=== PATIENT | female | born 1940 | race Hispanic/Latino ===

== ENCOUNTER → 2018-11-06 | Outpatient (CLI) | payer MEDICARE ==
[~2018-11-06] MED LIST: AMLO5TAB9 PO; DIAZ2TAB3 PO; INSU100C6 SQ; INSU3INS3 SQ; METF500T7 PO; METO-409 PO; PRAV40TA3 PO
== END | disposition home or self-care (01) ==
LOC: SHCH 10:52
PROVIDERS: ATTEND Internal Medicine Cardiovascular Disease
DX: I65.23 Occlusion and stenosis of bilateral carotid arteries (principal)
CPT/HCPCS: 93880

== ENCOUNTER → 2018-12-27 | Outpatient (CLI) | payer MEDICARE ==
[~2018-12-27] MED LIST changes: +GADODIAMIDE 10 MMOL/20 ML VIAL IV ONE; +METF500T20 PO; -METF500T7 PO
== END | disposition home or self-care (01) ==
LOC: RAH 12:48
PROVIDERS: ATTEND Internal Medicine Cardiovascular Disease
DX: M50.31 Other cervical disc degeneration, high cervical region (principal); M50.221 Other cervical disc displacement at C4-C5 level; M25.78 Osteophyte, vertebrae; M48.02 Spinal stenosis, cervical region
CPT/HCPCS: 72156; A9579

== ENCOUNTER 2019-09-13 15:43 | Emergency (ER) | payer MEDICARE ==
[2019-09-13] MEDS ORDERED: ACETAMINOPHEN 325 MG TAB ONE (18:15)
[2019-09-13] MEDS ORDERED: LIDOCAINE 5% TOPICAL PATCH TP ONE (18:15)
== END 2019-09-13 19:45 | disposition home or self-care (01) ==
LOC: EDH 15:43
DX: S39.012A Strain of muscle, fascia and tendon of lower back, initial encounter (principal); S20.219A Contusion of unspecified front wall of thorax, initial encounter; S00.83XA Contusion of other part of head, initial encounter; S00.03XA Contusion of scalp, initial encounter; G89.29 Other chronic pain; E11.9 Type 2 diabetes mellitus without complications; I10 Essential (primary) hypertension; Z88.8 Allergy status to other drugs, medicaments and biological substances; Z88.9 Allergy status to unspecified drugs, medicaments and biological substances; W18.39XA Other fall on same level, initial encounter; Y93.89 Activity, other specified; Y92.89 Other specified places as the place of occurrence of the external cause; Y99.8 Other external cause status

== ENCOUNTER 2020-02-07 21:40 | Inpatient (IN) | payer MEDICARE ==
[~2020-02-07] VITALS: Ht 157.5 cm; Wt 89.4 kg
[~2020-02-07 21:40] MED LIST changes: +ALPR-411 PO; +AMLO-257 PO; -AMLO5TAB9 PO; +ASPI-1005 PO; -DIAZ2TAB3 PO; +ESCI10TA54 PO; -GADODIAMIDE 10 MMOL/20 ML VIAL IV ONE; +HYDR-4060 PO; +INSLAN SQ; -INSU100C6 SQ; -INSU3INS3 SQ; +LIDOP TP; +LISI10TA7 PO; +METF-910 PO; -METF500T20 PO; -METO-409 PO; +PREG75 PO
[2020-02-07 22:06] LABS: BASOPHILS % (AUTO) 0.5 % (0.0-5.0); EOSINOPHILS % (AUTO) 0.5 % (0.0-8.0); HEMATOCRIT 35.5 % (36-48); LYMPHOCYTES % (AUTO) 19.1 % (21.0-51.0); MEAN CORPUSCULAR HEMOGLOBIN 32.2 pg (27.0-33.0); MEAN CORPUSCULAR HGB CONC 34.9 g/dL (32.0-36.0); MEAN CORPUSCULAR VOLUME 92.2 fL (79-99); MONOCYTES % (AUTO) 7.6 % (3.0-13.0); NEUTROPHILS % (AUTO) 71.8 % (40.0-77.0); PLATELET COUNT (AUTO) 287 K/uL (130-400); RED BLOOD CELL COUNT(AUTO) 3.85 MIL/uL (4.00-5.50); RED CELL DISTRIBUTION WIDTH 12.7 % (11.0-15.5); WHITE BLOOD COUNT (AUTO) 12.9 K/uL (4.8-10.8)
[2020-02-07 22:14] LABS: CREATININE 1.3 mg/dL (0.5-1.5); POTASSIUM 3.7 mmol/L (3.5-5.1)
[2020-02-07 22:19] LABS: ALBUMIN 4.3 g/dL (3.5-5.0); BILIRUBIN,TOTAL 0.5 mg/dL (0.2-1.0)
[2020-02-07 22:25] LABS: INR 0.99 (0.85-1.15); PARTIAL THROMBOPLASTIN TIME 24.7 SEC (26.3-35.5); PROTHROMBIN TIME 10.7 SEC (9.6-11.6)
[2020-02-07] MEDS ORDERED: FAMOTIDINE/PF 20 MG/2 ML VIAL IV ONE (22:56)
[2020-02-07] MEDS ORDERED: SUCRALFATE 1 GM TABLET ONE (22:56)
[2020-02-07] MEDS ORDERED: ONDANSETRON HCL 4 MG/2 ML VIAL ONE (22:56)
[2020-02-07] MEDS ORDERED: MAG HYDROX/AL HYDROX/SIMETH ES 30 ML SUSP UDCUP ONE (23:43)
[2020-02-07] MEDS ORDERED: LIDOCAINE HCL 2% VISCOUS 15 ML UDCUP ONE (23:43)
[2020-02-07] MEDS ORDERED: SODIUM CHLORIDE 0.9% 500ML 500 ML IV ONE (23:44)
[2020-02-08] MEDS ORDERED: MORPHINE SULFATE 4 MG/1ML SYG ONE (00:49)
[2020-02-08] MEDS ORDERED: BISACODYL 10 MG SUPP.RECT RC ONE (01:00)
[2020-02-08] MEDS: SODIUM CHLORIDE 0.9% 1000ML 1,000 ML IV SCH ×3 (01:00→19:31)
[2020-02-08] MEDS ORDERED: LACTULOSE 20 GM/30 ML UDCUP PO PRN (01:00)
[2020-02-08] MEDS ORDERED: HYDRALAZINE HCL 20 MG/ML VIAL IV PRN (01:00)
[2020-02-08] MEDS ORDERED: ACETAMINOPHEN 325 MG TAB PO PRN ×2 (01:00)
[2020-02-08] MEDS ORDERED: ONDANSETRON HCL 4 MG/2 ML VIAL IV PRN (01:00)
[2020-02-08 04:53] LABS: BASOPHILS % (AUTO) 0.4 % (0.0-5.0); EOSINOPHILS % (AUTO) 0.5 % (0.0-8.0); HEMATOCRIT 32.4 % (36-48); LYMPHOCYTES % (AUTO) 19.3 % (21.0-51.0); MEAN CORPUSCULAR HEMOGLOBIN 31.4 pg (27.0-33.0); MEAN CORPUSCULAR HGB CONC 33.3 g/dL (32.0-36.0); MEAN CORPUSCULAR VOLUME 94.2 fL (79-99); MONOCYTES % (AUTO) 6.7 % (3.0-13.0); NEUTROPHILS % (AUTO) 72.7 % (40.0-77.0); PLATELET COUNT (AUTO) 257 K/uL (130-400); RED BLOOD CELL COUNT(AUTO) 3.44 MIL/uL (4.00-5.50); RED CELL DISTRIBUTION WIDTH 12.7 % (11.0-15.5); WHITE BLOOD COUNT (AUTO) 11.4 K/uL (4.8-10.8)
[2020-02-08 05:04] LABS: CREATININE 1.1 mg/dL (0.5-1.5); POTASSIUM 4.2 mmol/L (3.5-5.1)
[2020-02-08] MEDS: INSULIN HUMULIN R 100 UNIT/ML 3ML SQ SCH ×3 (06:00→16:45)
[2020-02-08] MEDS ORDERED: SODIUM CHLORIDE 0.9% 1000ML 1,000 ML IV ONE (06:32)
[2020-02-08 09:39] VITALS: BP 150/62
[2020-02-08] MEDS: FAMOTIDINE/PF 20 MG/2 ML VIAL IV SCH ×2 (10:14→19:30)
[2020-02-08] MEDS: ENOXAPARIN SODIUM 40 MG/0.4 ML SYRINGE SQ SCH (10:15)
[2020-02-08] MEDS: MORPHINE SULFATE 2 MG/ML 1ML SYG IV PRN ×2 (10:15→19:31)
[2020-02-08 11:42] VITALS: BP 140/71
--- NOTE | 2020-02-08 14:51 | NUR ---
PT TOLERATED DIET. AFTER ONE HOUR NO NAUSEA OR ABDOMINAL DISCOMFORT PRESENT, NGT REMOVED ORDERED BY BEST HARMON OF DR. GRAY.
[2020-02-08 15:13] VITALS: BP 139/60
[2020-02-08 20:40] VITALS: BP 133/50
[2020-02-08 23:56] VITALS: BP 148/61
[2020-02-09] MEDS: MORPHINE SULFATE 2 MG/ML 1ML SYG IV PRN (00:48)
[2020-02-09] MEDS ORDERED: LIDOCAINE 5% TOPICAL PATCH TP ONE (00:53)
[2020-02-09] MEDS ORDERED: LIDOCAINE 5% TOPICAL PATCH TP SCH (01:00)
[2020-02-09] MEDS ORDERED: ALPRAZOLAM 1 MG TAB PO ONE (01:15)
[2020-02-09 03:46] VITALS: BP 133/61
[2020-02-09 05:13] LABS: BASOPHILS % (AUTO) 1.1 % (0.0-5.0); EOSINOPHILS % (AUTO) 4.2 % (0.0-8.0); HEMATOCRIT 32.3 % (36-48); LYMPHOCYTES % (AUTO) 36.1 % (21.0-51.0); MEAN CORPUSCULAR HEMOGLOBIN 31.9 pg (27.0-33.0); MEAN CORPUSCULAR HGB CONC 33.7 g/dL (32.0-36.0); MEAN CORPUSCULAR VOLUME 94.4 fL (79-99); MONOCYTES % (AUTO) 10.4 % (3.0-13.0); NEUTROPHILS % (AUTO) 47.9 % (40.0-77.0); PLATELET COUNT (AUTO) 235 K/uL (130-400); RED BLOOD CELL COUNT(AUTO) 3.42 MIL/uL (4.00-5.50); RED CELL DISTRIBUTION WIDTH 12.5 % (11.0-15.5); WHITE BLOOD COUNT (AUTO) 6.5 K/uL (4.8-10.8)
[2020-02-09] MEDS: INSULIN HUMULIN R 100 UNIT/ML 3ML SQ SCH ×3 (05:32→11:25)
[2020-02-09 05:53] LABS: ALBUMIN 3.3 g/dL (3.5-5.0); BILIRUBIN,TOTAL 0.6 mg/dL (0.2-1.0); POTASSIUM 3.8 mmol/L (3.5-5.1); TOTAL PROTEIN, SERUM 6.4 g/dL (6.0-8.3)
[2020-02-09] MEDS: SODIUM CHLORIDE 0.9% 1000ML 1,000 ML IV SCH (06:09)
[2020-02-09 07:48] VITALS: BP 180/74
[2020-02-09] MEDS: FAMOTIDINE/PF 20 MG/2 ML VIAL IV SCH (08:04)
[2020-02-09] MEDS: ENOXAPARIN SODIUM 40 MG/0.4 ML SYRINGE SQ SCH (08:05)
[2020-02-09] MEDS ORDERED: METF-444 PO (10:13)
[2020-02-09] MEDS ORDERED: ALPR-411 PO (10:13)
[2020-02-09] MEDS ORDERED: OLME40TA18 PO (10:13)
[2020-02-09] MEDS ORDERED: ATOR40TA69 PO (10:13)
[2020-02-09] MEDS ORDERED: AMLO-257 PO (10:14)
--- NOTE | 2020-02-09 10:24 | NUR ---
PER [facility], P GIVE OLMESARTAN MEDOXOMIL 40 MG PO STAT AND AMLODIPINE BESYLATE 5 MG PO STAT FOR ELEVATED BLOOD PRESSURE 180/74, HR 71.
[2020-02-09] MEDS ORDERED: AMLODIPINE BESYLATE 5 MG TAB PO SCH (10:30)
--- NOTE | 2020-02-09 10:38 | NUR ---
PT WILL TAKE HER HOME OLMESARTAN 40 MG.
[2020-02-09 11:15] VITALS: BP 166/62
[2020-02-09] MEDS ORDERED: AMLO5TAB4 PO (14:24)
--- NOTE | 2020-02-09 16:23 | NUR ---
INITIAL: Met w pt and son this afternoon to discuss dcp. Pt mentions that she lives w her son Johnny. She is independent w ambulation and ADLs. She does not own any DME or receive services. PT states that she feels safe and comfortable to return home at sd. CM to continue to follow and wait for Md recommendations. Addendum: 02/09/20 at 1627 by SARA BRADSHAW Amended: Links added.
== END 2020-02-09 15:15 | disposition home or self-care (01) | DRG 389 ==
LOC: EDH 21:40 → EDHIP 02-08 00:46 → 4AH 02-08 09:52
PROVIDERS: ADMIT Family Medicine; ATTEND Family Medicine
PROC: 0D9670Z Drainage of Stomach with Drainage Device, Via Natural or Artificial Opening (ICD-10-PCS; principal; 2020-02-08)
DX: K56.699 Other intestinal obstruction unspecified as to partial versus complete obstruction (principal); I24.9 Acute ischemic heart disease, unspecified; E11.9 Type 2 diabetes mellitus without complications; I10 Essential (primary) hypertension; I25.10 Atherosclerotic heart disease of native coronary artery without angina pectoris; K31.89 Other diseases of stomach and duodenum; F32.9 Major depressive disorder, single episode, unspecified; E78.5 Hyperlipidemia, unspecified; F41.9 Anxiety disorder, unspecified; G89.29 Other chronic pain; M54.9 Dorsalgia, unspecified; Z82.3 Family history of stroke; Z82.0 Family history of epilepsy and other diseases of the nervous system; Z82.49 Family history of ischemic heart disease and other diseases of the circulatory system; Z82.5 Family history of asthma and other chronic lower respiratory diseases; Z83.3 Family history of diabetes mellitus; Z95.1 Presence of aortocoronary bypass graft; Z88.8 Allergy status to other drugs, medicaments and biological substances
CPT/HCPCS: 36415; 71045; 74018; 74176; 80048; 80053; 82550; 82948; 83690; 83880; 84484; 85025; 85610; 85730; 93005; G0378; J1650; J2270; J2405; J3490; J7030; J7040

== ENCOUNTER 2020-06-17 06:41 | Inpatient (IN) | payer MEDICARE ==
[~2020-06-17] VITALS: Ht 157.5 cm; Wt 84.9 kg
[~2020-06-17 06:41] MED LIST changes: +AMLO5TAB4 PO; -ASPI-1005 PO; +ATOR40TA69 PO; -ESCI10TA54 PO; -HYDR-4060 PO; -INSLAN SQ; -LIDOP TP; -LISI10TA7 PO; +METF-444 PO; -METF-910 PO; +OLME40TA18 PO; -PRAV40TA3 PO; -PREG75 PO
[2020-06-17 07:07] LABS: BASOPHILS % (AUTO) 0.7 % (0.0-5.0); HEMATOCRIT 31.9 % (36-48); LYMPHOCYTES % (AUTO) 17.6 % (21.0-51.0); MEAN CORPUSCULAR HEMOGLOBIN 30.3 pg (27.0-33.0); MEAN CORPUSCULAR HGB CONC 33.2 g/dL (32.0-36.0); MEAN CORPUSCULAR VOLUME 91.1 fL (79-99); MONOCYTES % (AUTO) 5.7 % (3.0-13.0); NEUTROPHILS % (AUTO) 74.5 % (40.0-77.0); PLATELET COUNT (AUTO) 298 K/uL (130-400); RED CELL DISTRIBUTION WIDTH 12.9 % (11.0-15.5); WHITE BLOOD COUNT (AUTO) 13.1 K/uL (4.8-10.8)
[2020-06-17 07:19] LABS: INR 1.06 (0.85-1.15); PROTHROMBIN TIME 11.5 SEC (9.6-11.6)
[2020-06-17 07:20] LABS: PARTIAL THROMBOPLASTIN TIME 22.4 SEC (26.3-35.5)
[2020-06-17 07:23] LABS: ALBUMIN 3.9 g/dL (3.5-5.0); BILIRUBIN,TOTAL 1.1 mg/dL (0.2-1.0); CREATININE 1.2 mg/dL (0.5-1.5); POTASSIUM 3.8 mmol/L (3.5-5.1); TOTAL PROTEIN, SERUM 7.3 g/dL (6.0-8.3)
[2020-06-17] MEDS ORDERED: ONDANSETRON 4MG INJ ONE (07:57)
[2020-06-17] MEDS ORDERED: MORPHINE 4 MG SYG ONE ×2 (07:58→11:57)
[2020-06-17] MEDS ORDERED: 0.9%NACL 1000ML 1,000 ML IV ONE (07:58)
[2020-06-17] MEDS ORDERED: ZOSYN 3.375GM+NS 50ML 50 ML IV ONE (11:07)
[2020-06-17] MEDS ORDERED: 0.9%NACL 50ML 50 ML IV ONE (11:20)
[2020-06-17] MEDS ORDERED: MORPHINE 2 MG SYG IVP PRN (11:30)
[2020-06-17] MEDS: METRONIDAZOLE 500MG/100ML BAG 100 ML IV SCH ×2 (11:30→19:25)
[2020-06-17] MEDS: 0.9%NACL 1000ML 1,000 ML IV SCH (11:30)
[2020-06-17] MEDS ORDERED: LACTULOSE 20 GM/30 ML UDCUP PO PRN (11:30)
[2020-06-17] MEDS ORDERED: ONDANSETRON 4MG INJ IV PRN (11:30)
[2020-06-17] MEDS ORDERED: ACETAMINOPHEN 325 MG TAB PO PRN (11:30)
[2020-06-17 11:42] LABS: APPEARANCE,URINE Clear (CLEAR); BILIRUBIN,URINE Negative (NEGATIVE); COLOR,URINE Yellow (YELLOW); GLUCOSE, URINE (UA) TRACE mg/dL (NEGATIVE); KETONES,URINE Negative (NEGATIVE); LEUKOCYTE ESTERASE ,URINE Negative (NEGATIVE); NITRATE,URINE Negative (NEGATIVE); OCCULT BLOOD,URINE Negative (NEGATIVE); PH,URINE 5.5 (5.0-8.0); PROTEIN,URINE Negative (NEGATIVE)
[2020-06-17] MEDS ORDERED: METRONIDAZOLE 500MG/100ML BAG 100 ML ONE (11:57)
[2020-06-17] MEDS: INSULIN HUMULIN R 100 UNIT/ML 3ML SQ SCH (12:00)
[2020-06-17] MEDS ORDERED: ACETAMINOPHEN 325 MG TAB ONE (12:00)
[2020-06-17 12:09] LABS: RBC,URINE 0-1 /HPF (0-1); WBC,URINE 0-1 /HPF (0-1)
[2020-06-17 12:10] LABS: BACTERIA,URINE Rare /HPF (None Seen); SQUAMOUS EPITHELIAL CELL,UR Rare /HPF (0-2)
[2020-06-17] MEDS: ZOSYN 3.375GM+NS 50ML 50 ML IV SCH ×2 (13:00→20:33)
[2020-06-17 16:39] VITALS: BP 168/54
[2020-06-17] MEDS ORDERED: HYDROMORPHONE 1 MG INJ ONE (19:01)
[2020-06-17 19:39] VITALS: BP 158/50
[2020-06-17] MEDS ORDERED: ASPI-1197 PO (19:56)
[2020-06-17] MEDS: FAMOTIDINE 20MG VIAL IV SCH (20:31)
[2020-06-17] MEDS ORDERED: ALPR-411 PO (20:43)
[2020-06-17] MEDS ORDERED: ALPRAZOLAM 0.5 MG TABLET PO ONE (21:54)
[2020-06-17 23:30] VITALS: BP 153/59
[2020-06-18] MEDS: ACETAMINOPHEN 325 MG TAB PO PRN (00:18)
[2020-06-18] MEDS: 0.9%NACL 1000ML 1,000 ML IV SCH ×2 (00:50→20:28)
[2020-06-18] MEDS: METRONIDAZOLE 500MG/100ML BAG 100 ML IV SCH ×3 (03:28→20:27)
[2020-06-18 03:40] VITALS: BP 150/60
[2020-06-18] MEDS: ZOSYN 3.375GM+NS 50ML 50 ML IV SCH ×3 (04:55→20:27)
[2020-06-18 05:34] LABS: BASOPHILS % (AUTO) 0.5 % (0.0-5.0); EOSINOPHILS % (AUTO) 1.1 % (0.0-8.0); HEMATOCRIT 31.1 % (36-48); LYMPHOCYTES % (AUTO) 9.7 % (21.0-51.0); MEAN CORPUSCULAR HEMOGLOBIN 29.9 pg (27.0-33.0); MEAN CORPUSCULAR HGB CONC 32.2 g/dL (32.0-36.0); MEAN CORPUSCULAR VOLUME 93.1 fL (79-99); MONOCYTES % (AUTO) 5.7 % (3.0-13.0); NEUTROPHILS % (AUTO) 82.5 % (40.0-77.0); PLATELET COUNT (AUTO) 222 K/uL (130-400); RED BLOOD CELL COUNT(AUTO) 3.34 MIL/uL (4.00-5.50); RED CELL DISTRIBUTION WIDTH 13.3 % (11.0-15.5); WHITE BLOOD COUNT (AUTO) 14.6 K/uL (4.8-10.8)
[2020-06-18 05:54] LABS: CREATININE 1.3 mg/dL (0.5-1.5); POTASSIUM 3.7 mmol/L (3.5-5.1)
[2020-06-18] MEDS: INSULIN HUMULIN R 100 UNIT/ML 3ML SQ SCH ×5 (06:00→20:31)
[2020-06-18] MEDS ORDERED: ALPRAZOLAM 1 MG PO PRN (07:00)
[2020-06-18 07:53] VITALS: BP 141/39
[2020-06-18] MEDS: HYDROMORPHONE 1 MG INJ IVP PRN ×3 (08:15→23:37)
[2020-06-18] MEDS: ENOXAPARIN SODIUM 40 MG/0.4 ML SYRINGE SQ SCH (08:16)
[2020-06-18] MEDS ORDERED: FLUTICASONE PROPIONATE 50MCG/SPRAY 16 GM BOTTLE EN SCH ×2 (08:30→12:00)
[2020-06-18] MEDS ORDERED: NON-FORMULARY MEDICATION 1 EACH (Olmesartan Medoxomil 40 MG) PO SCH (09:00)
[2020-06-18 11:32] VITALS: BP 167/57
[2020-06-18] MEDS ORDERED: AMLODIPINE 5 MG TAB PO SCH (12:39)
[2020-06-18] MEDS ORDERED: ALPRAZOLAM 1 MG TAB PO PRN (12:39)
[2020-06-18] MEDS: ASPIRIN 81MG CHEW TAB PO SCH (13:05)
[2020-06-18 15:54] VITALS: BP 173/78
[2020-06-18 19:38] VITALS: BP 144/50
[2020-06-18] MEDS: FAMOTIDINE 20MG VIAL IV SCH (20:27)
[2020-06-18] MEDS: ALPRAZOLAM 1 MG TAB PO PRN (20:27)
[2020-06-18 23:28] VITALS: BP 159/57
[2020-06-19] MEDS: ACETAMINOPHEN 325 MG TAB PO PRN (00:43)
[2020-06-19] MEDS: METRONIDAZOLE 500MG/100ML BAG 100 ML IV SCH ×3 (03:46→19:52)
[2020-06-19] MEDS: 0.9%NACL 1000ML 1,000 ML IV SCH ×2 (03:50→17:07)
[2020-06-19 04:20] VITALS: BP 145/48
[2020-06-19] MEDS: ZOSYN 3.375GM+NS 50ML 50 ML IV SCH ×3 (05:03→20:30)
[2020-06-19 05:57] LABS: BASOPHILS % (AUTO) 0.8 % (0.0-5.0); EOSINOPHILS % (AUTO) 3.6 % (0.0-8.0); LYMPHOCYTES % (AUTO) 11.3 % (21.0-51.0); MEAN CORPUSCULAR HEMOGLOBIN 30.4 pg (27.0-33.0); MEAN CORPUSCULAR HGB CONC 33.3 g/dL (32.0-36.0); MEAN CORPUSCULAR VOLUME 91.2 fL (79-99); MONOCYTES % (AUTO) 8.1 % (3.0-13.0); NEUTROPHILS % (AUTO) 75.8 % (40.0-77.0); PLATELET COUNT (AUTO) 206 K/uL (130-400); RED BLOOD CELL COUNT(AUTO) 2.96 MIL/uL (4.00-5.50); RED CELL DISTRIBUTION WIDTH 13.2 % (11.0-15.5); WHITE BLOOD COUNT (AUTO) 7.5 K/uL (4.8-10.8)
[2020-06-19 06:11] LABS: CREATININE 1.1 mg/dL (0.5-1.5)
[2020-06-19 06:15] LABS: POTASSIUM 2.9 mmol/L (3.5-5.1)
[2020-06-19] MEDS ORDERED: HYDROMORPHONE 0.5 MG SYG (0.5MG/0.5ML) IVP ONE (06:30)
[2020-06-19] MEDS ORDERED: POTASSIUM CHLORIDE 20MEQ/100ML 100 ML IV ONE (06:37)
[2020-06-19] MEDS ORDERED: LIDOCAINE HCL-MPF 1% 2ML VIAL ONE (06:38)
[2020-06-19] MEDS: INSULIN HUMULIN R 100 UNIT/ML 3ML SQ SCH ×4 (06:39→21:00)
[2020-06-19] MEDS ORDERED: POTASSIUM CHLORIDE 20MEQ/100ML 100 ML IV PRN ×2 (06:45)
[2020-06-19] MEDS ORDERED: POTASSIUM CHLORIDE 10% ELIXIR 20 MEQ/15 ML UDCUP PO PRN (06:45)
[2020-06-19] MEDS ORDERED: LIDOCAINE HCL-MPF 1% 2ML VIAL IV PRN ×2 (06:45)
[2020-06-19] MEDS: FLUTICASONE PROPIONATE 50MCG/SPRAY 16 GM BOTTLE EN SCH (08:59)
[2020-06-19] MEDS: ASPIRIN 81MG CHEW TAB PO SCH (09:00)
[2020-06-19] MEDS: Olmesartan Medoxomil 40 MG PO SCH (09:00)
[2020-06-19] MEDS: ENOXAPARIN SODIUM 40 MG/0.4 ML SYRINGE SQ SCH (09:00)
[2020-06-19 10:29] VITALS: BP 154/50
[2020-06-19 12:00] VITALS: BP 159/46
[2020-06-19 17:07] VITALS: BP 173/54
[2020-06-19] MEDS: FAMOTIDINE 20MG VIAL IV SCH (20:29)
[2020-06-19] MEDS: HYDROMORPHONE 1 MG INJ IVP PRN (20:31)
[2020-06-19 20:32] VITALS: BP 178/59
[2020-06-19] MEDS: KCL 20 MEQ ERTAB PO PRN ×2 (22:25→23:54)
[2020-06-19] MEDS: ALPRAZOLAM 1 MG TAB PO PRN (23:54)
[2020-06-20] VITALS (25 sets, daily range): BP systolic 132–173; BP diastolic 51–68
[2020-06-20] MEDS: AMLODIPINE 5 MG TAB PO SCH ×2 (00:15→14:52)
[2020-06-20] MEDS: 0.9%NACL 1000ML 1,000 ML IV SCH ×3 (03:17→20:24)
[2020-06-20] MEDS: METRONIDAZOLE 500MG/100ML BAG 100 ML IV SCH ×3 (03:17→19:25)
[2020-06-20] MEDS: HYDROMORPHONE 1 MG INJ IVP PRN ×2 (03:47→22:05)
[2020-06-20] MEDS: ZOSYN 3.375GM+NS 50ML 50 ML IV SCH ×3 (04:54→20:40)
[2020-06-20 05:57] LABS: BASOPHILS % (AUTO) 0.8 % (0.0-5.0); EOSINOPHILS % (AUTO) 3.2 % (0.0-8.0); HEMATOCRIT 27.9 % (36-48); LYMPHOCYTES % (AUTO) 22.6 % (21.0-51.0); MEAN CORPUSCULAR HEMOGLOBIN 29.7 pg (27.0-33.0); MEAN CORPUSCULAR HGB CONC 32.6 g/dL (32.0-36.0); MEAN CORPUSCULAR VOLUME 91.2 fL (79-99); MONOCYTES % (AUTO) 9.3 % (3.0-13.0); NEUTROPHILS % (AUTO) 63.5 % (40.0-77.0); PLATELET COUNT (AUTO) 222 K/uL (130-400); RED BLOOD CELL COUNT(AUTO) 3.06 MIL/uL (4.00-5.50); RED CELL DISTRIBUTION WIDTH 13.2 % (11.0-15.5); WHITE BLOOD COUNT (AUTO) 7.1 K/uL (4.8-10.8)
[2020-06-20 06:03] LABS: CREATININE 1.1 mg/dL (0.5-1.5); POTASSIUM 3.4 mmol/L (3.5-5.1)
[2020-06-20] MEDS: INSULIN HUMULIN R 100 UNIT/ML 3ML SQ SCH ×4 (06:31→20:48)
[2020-06-20] MEDS: ALPRAZOLAM 1 MG TAB PO PRN (06:50)
[2020-06-20] MEDS ORDERED: SUCCINYLCHOLINE CHLORIDE 20 MG/ML 10 ML VIAL ONE (08:54)
[2020-06-20] MEDS ORDERED: DEXAMETHASONE SOD PHOSPHATE 10MG/ML 1ML VIAL ONE (08:54)
[2020-06-20] MEDS: FLUTICASONE PROPIONATE 50MCG/SPRAY 16 GM BOTTLE EN SCH (08:54)
[2020-06-20] MEDS ORDERED: GLYCOPYRROLATE 1 MG/5 ML SYRINGE ONE (08:54)
[2020-06-20] MEDS ORDERED: PROPOFOL 10 MG/ML 20ML VIAL IV ONE (08:54)
[2020-06-20] MEDS ORDERED: LIDOCAINE PF 100MG/5ML (2%) SYRINGE 5ML ONE (08:54)
[2020-06-20] MEDS ORDERED: ONDANSETRON 4MG INJ ONE (08:54)
[2020-06-20] MEDS ORDERED: MIDAZOLAM HCL 1 MG/ML 2ML VIAL ONE (08:55)
[2020-06-20] MEDS: ENOXAPARIN SODIUM 40 MG/0.4 ML SYRINGE SQ SCH (08:55)
[2020-06-20] MEDS ORDERED: NEOSTIGMINE 5MG/5ML SYR IV ONE (08:55)
[2020-06-20] MEDS ORDERED: ROCURONIUM 10MG/1ML SYR 10 MG/ML ML ONE (08:55)
[2020-06-20] MEDS ORDERED: FENTANYL CITRATE PF 50 MCG/1 ML 2ML VIAL ONE (08:55)
[2020-06-20] MEDS ORDERED: BUPIVACAINE/EPI/PF 0.5% 30ML VIAL IJ ONE (10:51)
[2020-06-20] MEDS ORDERED: EPHEDRINE SULFATE 50 MG/ML AMPULE ONE (11:57)
[2020-06-20] MEDS ORDERED: SUGAMMADEX SODIUM 200 MG/2 ML VIAL IV ONE (12:52)
[2020-06-20] MEDS ORDERED: MEPERIDINE-PF 25 MG/ML SYG ONE ×2 (13:05→13:32)
[2020-06-20] MEDS: Olmesartan Medoxomil 40 MG PO SCH (14:50)
[2020-06-20] MEDS: ASPIRIN 81MG CHEW TAB PO SCH (14:52)
[2020-06-20] MEDS: FAMOTIDINE 20MG VIAL IV SCH (20:40)
[2020-06-21] VITALS (7 sets, daily range): BP systolic 124–163; BP diastolic 39–75
[2020-06-21] MEDS: ALPRAZOLAM 1 MG TAB PO PRN ×2 (00:04→22:49)
[2020-06-21] MEDS: METRONIDAZOLE 500MG/100ML BAG 100 ML IV SCH ×3 (03:24→20:28)
[2020-06-21] MEDS: ZOSYN 3.375GM+NS 50ML 50 ML IV SCH ×3 (03:40→20:31)
[2020-06-21 06:03] LABS: HEMATOCRIT 26.2 % (36-48); MEAN CORPUSCULAR HEMOGLOBIN 30.3 pg (27.0-33.0); MEAN CORPUSCULAR VOLUME 89.1 fL (79-99); RED BLOOD CELL COUNT(AUTO) 2.94 MIL/uL (4.00-5.50); RED CELL DISTRIBUTION WIDTH 13.1 % (11.0-15.5); WHITE BLOOD COUNT (AUTO) 13.6 K/uL (4.8-10.8)
[2020-06-21 06:17] LABS: ALBUMIN 2.9 g/dL (3.5-5.0); BILIRUBIN,TOTAL 1.3 mg/dL (0.2-1.0); CREATININE 1.1 mg/dL (0.5-1.5); POTASSIUM 3.5 mmol/L (3.5-5.1); TOTAL PROTEIN, SERUM 6.2 g/dL (6.0-8.3)
[2020-06-21] MEDS: INSULIN HUMULIN R 100 UNIT/ML 3ML SQ SCH ×4 (06:35→21:03)
[2020-06-21] MEDS: KCL 20 MEQ ERTAB PO PRN ×2 (07:30→10:21)
[2020-06-21] MEDS: HYDROMORPHONE 1 MG INJ IVP PRN ×4 (07:36→20:53)
[2020-06-21] MEDS: 0.9%NACL 1000ML 1,000 ML IV SCH ×2 (08:50→20:33)
[2020-06-21] MEDS: ENOXAPARIN SODIUM 40 MG/0.4 ML SYRINGE SQ SCH (08:58)
[2020-06-21] MEDS: AMLODIPINE 5 MG TAB PO SCH (08:58)
[2020-06-21] MEDS: ASPIRIN 81MG CHEW TAB PO SCH (08:58)
[2020-06-21] MEDS: FLUTICASONE PROPIONATE 50MCG/SPRAY 16 GM BOTTLE EN SCH (09:15)
[2020-06-21] MEDS: Olmesartan Medoxomil 40 MG PO SCH (09:16)
[2020-06-21] MEDS ORDERED: ACETAMINOPHEN WITH CODEINE 1 TAB TAB PO PRN (16:30)
[2020-06-21] MEDS: FAMOTIDINE 20MG VIAL IV SCH (20:28)
[2020-06-22] MEDS: HYDROMORPHONE 1 MG INJ IVP PRN ×4 (01:08→14:49)
[2020-06-22] MEDS: METRONIDAZOLE 500MG/100ML BAG 100 ML IV SCH ×2 (03:14→11:30)
[2020-06-22 04:01] VITALS: BP 162/56
[2020-06-22] MEDS: ZOSYN 3.375GM+NS 50ML 50 ML IV SCH ×2 (04:41→13:11)
[2020-06-22] MEDS: INSULIN HUMULIN R 100 UNIT/ML 3ML SQ SCH ×2 (05:36→11:30)
[2020-06-22 08:21] VITALS: BP 156/47
[2020-06-22] MEDS: AMLODIPINE 5 MG TAB PO SCH (08:51)
[2020-06-22] MEDS: ASPIRIN 81MG CHEW TAB PO SCH (08:51)
[2020-06-22] MEDS: ENOXAPARIN SODIUM 40 MG/0.4 ML SYRINGE SQ SCH (08:52)
[2020-06-22] MEDS: FLUTICASONE PROPIONATE 50MCG/SPRAY 16 GM BOTTLE EN SCH (08:52)
[2020-06-22 11:00] VITALS: BP 109/49
[2020-06-22] MEDS: 0.9%NACL 1000ML 1,000 ML IV SCH (13:11)
[2020-06-22] MEDS ORDERED: ACET-2247 PO (15:41)
[2020-06-22 16:58] VITALS: BP 163/56
== END 2020-06-22 17:55 | disposition home or self-care (01) | DRG 419 ==
LOC: EDH 06:41 → EDHIP 11:26 → 3DH 16:00
PROVIDERS: ADMIT Internal Medicine; ATTEND Internal Medicine
PROC: 0FT44ZZ Resection of Gallbladder, Percutaneous Endoscopic Approach (ICD-10-PCS; principal; 2020-06-20 10:00)
DX: K80.00 Calculus of gallbladder with acute cholecystitis without obstruction (principal); I25.10 Atherosclerotic heart disease of native coronary artery without angina pectoris; K76.0 Fatty (change of) liver, not elsewhere classified; I10 Essential (primary) hypertension; E11.9 Type 2 diabetes mellitus without complications; E78.5 Hyperlipidemia, unspecified; F41.9 Anxiety disorder, unspecified; G89.29 Other chronic pain; M54.9 Dorsalgia, unspecified; K82.8 Other specified diseases of gallbladder; E66.9 Obesity, unspecified; Z68.34 Body mass index [BMI] 34.0-34.9, adult; Z88.8 Allergy status to other drugs, medicaments and biological substances; Z95.1 Presence of aortocoronary bypass graft; Z82.3 Family history of stroke; Z82.0 Family history of epilepsy and other diseases of the nervous system; Z83.3 Family history of diabetes mellitus; Z82.5 Family history of asthma and other chronic lower respiratory diseases; Z81.8 Family history of other mental and behavioral disorders; Z82.49 Family history of ischemic heart disease and other diseases of the circulatory system
CPT/HCPCS: 36415; 71045; 74181; 76705; 78226; 80048; 80053; 81001; 82550; 82948; 84484; 85025; 85027; 85610; 85730; 88304; 93005; A9537; G0378; J0330; J1100; J1170; J1650; J1815; J2001; J2175; J2250; J2270; J2405; J2543; J2704; J2710; J3010; J3480; J3490; J7030

== ENCOUNTER 2020-07-01 17:54 | Inpatient (IN) | payer MEDICARE ==
[~2020-07-01] VITALS: Ht 157.5 cm; Wt 86.5 kg
[~2020-07-01 17:54] MED LIST changes: +ACET-2247 PO; -AMLO-257 PO; +ASPI-1197 PO; -ATOR40TA69 PO
[2020-07-01 18:16] LABS: APPEARANCE,URINE Clear (CLEAR); BILIRUBIN,URINE Negative (NEGATIVE); COLOR,URINE Yellow (YELLOW); GLUCOSE, URINE (UA) Negative (NEGATIVE); KETONES,URINE Negative (NEGATIVE); LEUKOCYTE ESTERASE ,URINE Trace (NEGATIVE); NITRATE,URINE Negative (NEGATIVE); OCCULT BLOOD,URINE Negative (NEGATIVE); PROTEIN,URINE Negative (NEGATIVE)
[2020-07-01] MEDS ORDERED: MORPHINE 4 MG SYG ONE (18:22)
[2020-07-01] MEDS ORDERED: ONDANSETRON 4MG INJ ONE (18:22)
[2020-07-01 18:23] LABS: BACTERIA,URINE Rare /HPF (None Seen); RBC,URINE 0-1 /HPF (0-1); SQUAMOUS EPITHELIAL CELL,UR Few /HPF (0-2)
[2020-07-01 18:28] LABS: BASOPHILS % (AUTO) 0.7 % (0.0-5.0); EOSINOPHILS % (AUTO) 1.1 % (0.0-8.0); HEMATOCRIT 33.3 % (36-48); LYMPHOCYTES % (AUTO) 19.6 % (21.0-51.0); MEAN CORPUSCULAR HEMOGLOBIN 29.5 pg (27.0-33.0); MEAN CORPUSCULAR HGB CONC 32.4 g/dL (32.0-36.0); MONOCYTES % (AUTO) 6.6 % (3.0-13.0); NEUTROPHILS % (AUTO) 71.6 % (40.0-77.0); PLATELET COUNT (AUTO) 537 K/uL (130-400); RED BLOOD CELL COUNT(AUTO) 3.66 MIL/uL (4.00-5.50); RED CELL DISTRIBUTION WIDTH 13.4 % (11.0-15.5); WHITE BLOOD COUNT (AUTO) 9.9 K/uL (4.8-10.8)
[2020-07-01 18:40] LABS: CREATININE 1.4 mg/dL (0.5-1.5); POTASSIUM 3.8 mmol/L (3.5-5.1)
[2020-07-01 18:44] LABS: INR 1.05 (0.85-1.15); PROTHROMBIN TIME 11.4 SEC (9.6-11.6)
[2020-07-01 18:45] LABS: PARTIAL THROMBOPLASTIN TIME 24.8 SEC (26.3-35.5)
[2020-07-01 18:50] LABS: ALBUMIN 3.8 g/dL (3.5-5.0); BILIRUBIN,TOTAL 0.9 mg/dL (0.2-1.0); CRP QUANTITATIVE 14.3 mg/L (0.00-9.0); TOTAL PROTEIN, SERUM 7.8 g/dL (6.0-8.3)
[2020-07-01 18:57] LABS: B-TYPE NATRIURETIC PEPTIDE 103 pg/mL (0-100)
[2020-07-01] MEDS ORDERED: IOHEXOL-350 75 ML VIAL IV ONE (19:08)
[2020-07-01] MEDS ORDERED: HYDROMORPHONE 1 MG INJ ONE (19:22)
[2020-07-01] MEDS ORDERED: 0.9%NACL 50ML 50 ML IV ONE (22:35)
[2020-07-02] MEDS ORDERED: MORPHINE 4 MG SYG ONE ×2 (01:15→08:04)
[2020-07-02] MEDS ORDERED: MORPHINE 2 MG SYG IVP PRN ×2 (02:00)
[2020-07-02] MEDS ORDERED: MORPHINE 2 MG SYG IV PRN (03:00)
[2020-07-02] MEDS ORDERED: MORPHINE 4 MG SYG IV PRN (03:00)
[2020-07-02] MEDS ORDERED: 0.9%NACL 1000ML 1,000 ML IV ONE (04:09)
[2020-07-02 05:08] LABS: MAGNESIUM 1.5 mg/dL (1.80-2.40); PHOSPHORUS 3.8 mg/dL (2.5-4.9); THYROID STIMULATING HORMONE 1.41 uIU/mL (0.36-3.74)
[2020-07-02] MEDS: INSULIN HUMULIN R 100 UNIT/ML 3ML SQ SCH ×3 (06:00→18:00)
[2020-07-02] MEDS ORDERED: METOPROLOL TARTRATE 1 MG/ML 5ML VIAL IV SCH (06:00)
[2020-07-02 08:57] VITALS: BP 169/66
[2020-07-02] MEDS ORDERED: METOCLOPRAMIDE 10 MG/2 ML VIAL IVP SCH (09:00)
[2020-07-02] MEDS: FAMOTIDINE 20MG VIAL IV SCH ×2 (09:00→20:34)
[2020-07-02] MEDS: HYDROMORPHONE 2 MG VIAL (2MG/ML) IVP PRN ×4 (09:21→21:30)
[2020-07-02] MEDS: ONDANSETRON 4MG INJ IVP PRN ×2 (09:30→15:53)
[2020-07-02 11:06] VITALS: BP 138/55
[2020-07-02] MEDS: 0.9%NACL 1000ML 1,000 ML IV SCH ×3 (11:18→23:00)
[2020-07-02] MEDS ORDERED: ALPR1TAB7 PO (15:20)
[2020-07-02 15:21] VITALS: BP 165/56
[2020-07-02] MEDS ORDERED: ALPRAZOLAM 1 MG TAB PO PRN (17:45)
[2020-07-02] MEDS: LIDOCAINE 5% TOPICAL PATCH TP SCH (17:45)
[2020-07-02] MEDS ORDERED: LORAZEPAM 2 MG/ML 1 ML VIAL ONE (18:03)
[2020-07-02] MEDS ORDERED: LIDOCAINE 5% TOPICAL PATCH TP ONE (18:04)
[2020-07-02 20:00] VITALS: BP 156/53
[2020-07-02] MEDS: FLUTICASONE PROPIONATE 50MCG/SPRAY 16 GM BOTTLE EN SCH (21:00)
[2020-07-02] MEDS ORDERED: PHENOL 177 ML BOTTLE PO PRN (21:00)
[2020-07-02 23:49] VITALS: BP 164/58
[2020-07-03] VITALS (27 sets, daily range): BP systolic 142–168; BP diastolic 52–74
[2020-07-03] MEDS: HYDROMORPHONE 2 MG VIAL (2MG/ML) IVP PRN ×3 (03:20→20:11)
[2020-07-03] MEDS: INSULIN HUMULIN R 100 UNIT/ML 3ML SQ SCH ×4 (06:00→18:00)
[2020-07-03 07:15] LABS: BASOPHILS % (AUTO) 0.8 % (0.0-5.0); EOSINOPHILS % (AUTO) 2.7 % (0.0-8.0); HEMATOCRIT 31.3 % (36-48); LYMPHOCYTES % (AUTO) 29.3 % (21.0-51.0); MEAN CORPUSCULAR HGB CONC 32.6 g/dL (32.0-36.0); MEAN CORPUSCULAR VOLUME 92.1 fL (79-99); MONOCYTES % (AUTO) 6.7 % (3.0-13.0); PLATELET COUNT (AUTO) 439 K/uL (130-400); RED CELL DISTRIBUTION WIDTH 13.4 % (11.0-15.5); WHITE BLOOD COUNT (AUTO) 10.2 K/uL (4.8-10.8)
[2020-07-03] MEDS: LORAZEPAM 2 MG/ML 1 ML VIAL IVP PRN (07:20)
[2020-07-03] MEDS: 0.9%NACL 1000ML 1,000 ML IV SCH ×2 (07:20→15:33)
[2020-07-03 07:29] LABS: ALBUMIN 3.4 g/dL (3.5-5.0); BILIRUBIN,TOTAL 0.7 mg/dL (0.2-1.0); POTASSIUM 3.6 mmol/L (3.5-5.1); TOTAL PROTEIN, SERUM 7.1 g/dL (6.0-8.3)
[2020-07-03] MEDS: FLUTICASONE PROPIONATE 50MCG/SPRAY 16 GM BOTTLE EN SCH ×2 (10:21→21:13)
[2020-07-03] MEDS: LIDOCAINE 5% TOPICAL PATCH TP SCH (10:21)
[2020-07-03] MEDS: FAMOTIDINE 20MG VIAL IV SCH ×2 (10:21→21:13)
[2020-07-03] MEDS ORDERED: LIDOCAINE PF 100MG/5ML (2%) SYRINGE 5ML ONE (14:05)
[2020-07-03] MEDS ORDERED: SUCCINYLCHOLINE CHLORIDE 20 MG/ML 10 ML VIAL ONE (14:05)
[2020-07-03] MEDS ORDERED: PROPOFOL 10 MG/ML 20ML VIAL IV ONE (14:06)
[2020-07-03] MEDS ORDERED: MIDAZOLAM HCL 1 MG/ML 2ML VIAL ONE (14:07)
[2020-07-03] MEDS ORDERED: ROCURONIUM 10MG/1ML SYR 10 MG/ML ML ONE (14:07)
[2020-07-03] MEDS ORDERED: ONDANSETRON 4MG INJ ONE ×2 (14:08→15:45)
[2020-07-03] MEDS ORDERED: CEFAZOLIN SODIUM 1 GM VIAL ONE (14:08)
[2020-07-03] MEDS ORDERED: FENTANYL CITRATE PF 50 MCG/1 ML 2ML VIAL ONE ×2 (14:31→14:52)
[2020-07-03] MEDS ORDERED: BUPIVACAINE/PF 0.5% 30ML VIAL ONE (15:02)
[2020-07-03] MEDS ORDERED: DEXAMETHASONE SOD PHOSPHATE 10MG/ML 1ML VIAL ONE (15:06)
[2020-07-03] MEDS ORDERED: GLYCOPYRROLATE 1 MG/5 ML SYRINGE ONE (15:11)
[2020-07-03] MEDS ORDERED: NEOSTIGMINE 5MG/5ML SYR IV ONE (15:11)
[2020-07-03] MEDS ORDERED: MEPERIDINE-PF 25 MG/ML SYG ONE ×2 (15:52→16:01)
[2020-07-03] MEDS ORDERED: KETOROLAC 15MG/ML VIAL (15MG/ML) ONE (16:09)
[2020-07-03] MEDS ORDERED: AMLODIPINE 5 MG TAB PO SCH (17:55)
[2020-07-03] MEDS: CEFAZOLIN SODIUM 1 GM VIAL IVP SCH (22:16)
[2020-07-03] MEDS ORDERED: LABETALOL 20MG VIAL IV ONE (23:07)
[2020-07-04] VITALS: BP 152/54
[2020-07-04] MEDS: HYDROMORPHONE 2 MG VIAL (2MG/ML) IVP PRN ×6 (00:21→20:50)
[2020-07-04 04:00] VITALS: BP 169/51
[2020-07-04] MEDS: LACTATED RINGERS 1000ML 1,000 ML IV SCH ×3 (05:33→20:54)
[2020-07-04] MEDS: CEFAZOLIN SODIUM 1 GM VIAL IVP SCH (05:33)
[2020-07-04] MEDS: INSULIN HUMULIN R 100 UNIT/ML 3ML SQ SCH ×4 (06:00→18:00)
[2020-07-04] MEDS ORDERED: ACETAMINOPHEN 325 MG TAB ONE (06:41)
[2020-07-04 07:09] LABS: BASOPHILS % (AUTO) 0.5 % (0.0-5.0); EOSINOPHILS % (AUTO) 0.1 % (0.0-8.0); HEMATOCRIT 26.7 % (36-48); MEAN CORPUSCULAR HEMOGLOBIN 30.6 pg (27.0-33.0); MEAN CORPUSCULAR HGB CONC 33.3 g/dL (32.0-36.0); MEAN CORPUSCULAR VOLUME 91.8 fL (79-99); MONOCYTES % (AUTO) 5.3 % (3.0-13.0); NEUTROPHILS % (AUTO) 83.4 % (40.0-77.0); PLATELET COUNT (AUTO) 390 K/uL (130-400); RED BLOOD CELL COUNT(AUTO) 2.91 MIL/uL (4.00-5.50); RED CELL DISTRIBUTION WIDTH 13.3 % (11.0-15.5); WHITE BLOOD COUNT (AUTO) 12.2 K/uL (4.8-10.8)
[2020-07-04 07:27] LABS: POTASSIUM 3.9 mmol/L (3.5-5.1)
[2020-07-04] MEDS: ASPIRIN 81MG CHEW TAB PO SCH (09:00)
[2020-07-04] MEDS: FAMOTIDINE 20MG VIAL IV SCH ×2 (09:29→20:47)
[2020-07-04] MEDS: FLUTICASONE PROPIONATE 50MCG/SPRAY 16 GM BOTTLE EN SCH ×2 (09:30→20:50)
[2020-07-04] MEDS: LIDOCAINE 5% TOPICAL PATCH TP SCH (09:30)
[2020-07-04] MEDS: LORAZEPAM 2 MG/ML 1 ML VIAL IVP PRN ×3 (09:31→22:32)
[2020-07-04 09:51] VITALS: BP 157/88
[2020-07-04 12:00] VITALS: BP 180/67
[2020-07-04] MEDS: LABETALOL 20MG VIAL IV PRN (12:52)
[2020-07-04] MEDS ORDERED: AMLODIPINE 5 MG TAB PO ONE (14:00)
[2020-07-04 16:38] VITALS: BP 183/56
[2020-07-04 20:16] VITALS: BP 163/76
[2020-07-04] MEDS: ACETAMINOPHEN 325 MG TAB PO PRN (22:36)
[2020-07-05] VITALS (7 sets, daily range): BP systolic 128–179; BP diastolic 61–79
[2020-07-05] MEDS: HYDROMORPHONE 2 MG VIAL (2MG/ML) IVP PRN ×5 (01:11→21:52)
[2020-07-05] MEDS: LACTATED RINGERS 1000ML 1,000 ML IV SCH ×2 (01:45→11:45)
[2020-07-05 05:38] LABS: BASOPHILS % (AUTO) 0.5 % (0.0-5.0); EOSINOPHILS % (AUTO) 6.6 % (0.0-8.0); HEMATOCRIT 29.3 % (36-48); LYMPHOCYTES % (AUTO) 20.5 % (21.0-51.0); MEAN CORPUSCULAR HEMOGLOBIN 29.1 pg (27.0-33.0); MEAN CORPUSCULAR HGB CONC 31.7 g/dL (32.0-36.0); MEAN CORPUSCULAR VOLUME 91.6 fL (79-99); MONOCYTES % (AUTO) 8.2 % (3.0-13.0); NEUTROPHILS % (AUTO) 63.5 % (40.0-77.0); PLATELET COUNT (AUTO) 409 K/uL (130-400); RED CELL DISTRIBUTION WIDTH 13.2 % (11.0-15.5); WHITE BLOOD COUNT (AUTO) 10.2 K/uL (4.8-10.8)
[2020-07-05] MEDS: INSULIN HUMULIN R 100 UNIT/ML 3ML SQ SCH ×5 (05:41→23:40)
[2020-07-05 05:58] LABS: ALBUMIN 2.8 g/dL (3.5-5.0); BILIRUBIN,TOTAL 0.6 mg/dL (0.2-1.0); CREATININE 0.8 mg/dL (0.5-1.5); POTASSIUM 3.2 mmol/L (3.5-5.1); TOTAL PROTEIN, SERUM 6.3 g/dL (6.0-8.3)
[2020-07-05] MEDS: ACETAMINOPHEN 325 MG TAB PO PRN ×3 (06:43→20:11)
[2020-07-05] MEDS: LABETALOL 20MG VIAL IV PRN (06:47)
[2020-07-05] MEDS: FAMOTIDINE 20MG VIAL IV SCH ×2 (10:01→20:21)
[2020-07-05] MEDS: LIDOCAINE 5% TOPICAL PATCH TP SCH (10:01)
[2020-07-05] MEDS: ASPIRIN 81MG CHEW TAB PO SCH (10:01)
[2020-07-05] MEDS: LORAZEPAM 2 MG/ML 1 ML VIAL IVP PRN ×2 (10:02→17:29)
[2020-07-05] MEDS: ONDANSETRON 4MG INJ IVP PRN ×2 (10:14→16:25)
[2020-07-05] MEDS: FLUTICASONE PROPIONATE 50MCG/SPRAY 16 GM BOTTLE EN SCH ×2 (10:37→20:21)
[2020-07-05] MEDS: AMLODIPINE 5 MG TAB PO SCH (12:22)
[2020-07-05] MEDS ORDERED: POTASSIUM CHLORIDE 10% ELIXIR 20 MEQ/15 ML UDCUP PO PRN (13:30)
[2020-07-05] MEDS ORDERED: LIDOCAINE HCL-MPF 1% 2ML VIAL IV PRN (13:30)
[2020-07-05] MEDS ORDERED: POTASSIUM CHLORIDE 10MEQ/100ML 100 ML IV PRN (13:30)
[2020-07-05] MEDS: KCL 20 MEQ ERTAB PO PRN ×3 (13:57→17:59)
[2020-07-05] MEDS: DOCUSATE SODIUM 100 MG CAP PO SCH (20:21)
[2020-07-05] MEDS: ACETAMINOPHEN WITH CODEINE 1 TAB TAB PO PRN (20:22)
[2020-07-05] MEDS: ALPRAZOLAM 1 MG TAB PO PRN (22:36)
[2020-07-06] VITALS: BP 143/59
[2020-07-06] MEDS ORDERED: HYDROMORPHONE 0.5 MG SYG (0.5MG/0.5ML) ONE (02:45)
[2020-07-06 03:50] VITALS: BP 162/66
[2020-07-06] MEDS: ACETAMINOPHEN WITH CODEINE 1 TAB TAB PO PRN ×2 (05:36→09:30)
[2020-07-06] MEDS: INSULIN HUMULIN R 100 UNIT/ML 3ML SQ SCH (05:37)
[2020-07-06 05:49] LABS: BASOPHILS % (AUTO) 0.5 % (0.0-5.0); HEMATOCRIT 25.6 % (36-48); LYMPHOCYTES % (AUTO) 22.6 % (21.0-51.0); MEAN CORPUSCULAR HEMOGLOBIN 30.2 pg (27.0-33.0); MEAN CORPUSCULAR HGB CONC 33.6 g/dL (32.0-36.0); MEAN CORPUSCULAR VOLUME 89.8 fL (79-99); MONOCYTES % (AUTO) 9.5 % (3.0-13.0); NEUTROPHILS % (AUTO) 59.7 % (40.0-77.0); PLATELET COUNT (AUTO) 365 K/uL (130-400); RED BLOOD CELL COUNT(AUTO) 2.85 MIL/uL (4.00-5.50); RED CELL DISTRIBUTION WIDTH 13.2 % (11.0-15.5); WHITE BLOOD COUNT (AUTO) 8.1 K/uL (4.8-10.8)
[2020-07-06 05:57] LABS: CREATININE 0.8 mg/dL (0.5-1.5); POTASSIUM 3.6 mmol/L (3.5-5.1)
[2020-07-06] MEDS: KCL 20 MEQ ERTAB PO PRN ×2 (06:11→09:31)
[2020-07-06 07:25] VITALS: BP 148/66
[2020-07-06] MEDS ORDERED: ACET1TAB25 PO (08:01)
[2020-07-06] MEDS ORDERED: DOCU-116 PO (08:01)
[2020-07-06] MEDS: ALPRAZOLAM 1 MG TAB PO PRN (08:11)
[2020-07-06] MEDS: AMLODIPINE 5 MG TAB PO SCH (09:05)
[2020-07-06] MEDS: DOCUSATE SODIUM 100 MG CAP PO SCH (09:05)
[2020-07-06] MEDS: ASPIRIN 81MG CHEW TAB PO SCH (09:05)
[2020-07-06] MEDS: FAMOTIDINE 20MG VIAL IV SCH (09:05)
[2020-07-06] MEDS: LIDOCAINE 5% TOPICAL PATCH TP SCH (09:05)
[2020-07-06] MEDS: FLUTICASONE PROPIONATE 50MCG/SPRAY 16 GM BOTTLE EN SCH (09:07)
[2020-07-06] MEDS: ONDANSETRON 4MG INJ IVP PRN (09:49)
== END 2020-07-06 13:25 | disposition home or self-care (01) | DRG 355 ==
LOC: EDH 17:54 → EDHIP 07-02 01:20 → 3BH 07-02 08:47
PROVIDERS: ADMIT Internal Medicine; ATTEND Internal Medicine
PROC: 0D9670Z Drainage of Stomach with Drainage Device, Via Natural or Artificial Opening (ICD-10-PCS; 2020-07-03)
PROC: 0WUF0JZ Supplement Abdominal Wall with Synthetic Substitute, Open Approach (ICD-10-PCS; principal; 2020-07-03 11:00)
DX: K43.0 Incisional hernia with obstruction, without gangrene (principal); E11.9 Type 2 diabetes mellitus without complications; D17.9 Benign lipomatous neoplasm, unspecified; E78.5 Hyperlipidemia, unspecified; F32.9 Major depressive disorder, single episode, unspecified; I25.10 Atherosclerotic heart disease of native coronary artery without angina pectoris; Z90.49 Acquired absence of other specified parts of digestive tract; Z82.49 Family history of ischemic heart disease and other diseases of the circulatory system; Z82.0 Family history of epilepsy and other diseases of the nervous system; Z82.5 Family history of asthma and other chronic lower respiratory diseases; Z83.3 Family history of diabetes mellitus; Z82.3 Family history of stroke; F41.9 Anxiety disorder, unspecified; M54.9 Dorsalgia, unspecified; G89.29 Other chronic pain; Z95.1 Presence of aortocoronary bypass graft; K57.90 Diverticulosis of intestine, part unspecified, without perforation or abscess without bleeding; I10 Essential (primary) hypertension
CPT/HCPCS: 36415; 71045; 74177; 80048; 80053; 81001; 82948; 83605; 83690; 83735; 83880; 84100; 84145; 84443; 84484; 85025; 85610; 85730; 86140; 87040; 93005; 99291; C1781; G0378; J0330; J0690; J1100; J1170; J1885; J2001; J2060; J2175; J2250; J2270; J2405; J2704; J2710; J3010; J3490; J7030; J7120; Q9967

== ENCOUNTER → 2020-07-30 | Outpatient (CLI) | payer MEDICARE ==
[~2020-07-30] MED LIST changes: -ACET-2247 PO; +ACET1TAB25 PO; -ALPR-411 PO; +ALPR1TAB7 PO; +DOCU-116 PO
== END | disposition home or self-care (01) ==
LOC: OIH 09:19
PROVIDERS: ATTEND Surgery
DX: R10.9 Unspecified abdominal pain (principal); M51.37 Other intervertebral disc degeneration, lumbosacral region; Z90.49 Acquired absence of other specified parts of digestive tract
CPT/HCPCS: 74150

== ENCOUNTER → 2020-08-20 | Outpatient (CLI) | payer MEDICARE ==
[~2020-08-20] MED LIST changes: +FLUT16H NASAL
== END | disposition home or self-care (01) ==
LOC: LAB 09:14
PROVIDERS: ATTEND Surgery
DX: R10.9 Unspecified abdominal pain (principal)
CPT/HCPCS: 36415; 82565; 84520

== ENCOUNTER → 2020-08-21 | Outpatient (CLI) | payer MEDICARE ==
[~2020-08-21] MED LIST changes: +EPHEDRINE SULFATE 50 MG/ML AMPULE ONE; +FENTANYL CITRATE PF 50 MCG/1 ML 2ML VIAL ONE; +GLYCOPYRROLATE 1 MG/5 ML SYRINGE ONE; +IOHEXOL 350 MG/ML 100ML INFUS..BTL IV ONE; +LIDOCAINE PF 2% 5ML ABBOJECT ONE; +ONDANSETRON HCL 4 MG/2 ML VIAL ONE; +PROPOFOL 10 MG/ML 20ML VIAL IV ONE; +SUCCINYLCHOLINE 200MG/10ML SYR ONE
== END | disposition home or self-care (01) ==
LOC: RAH 10:40
PROVIDERS: ATTEND Surgery
DX: R10.9 Unspecified abdominal pain (principal); I25.10 Atherosclerotic heart disease of native coronary artery without angina pectoris; I50.9 Heart failure, unspecified
CPT/HCPCS: 74160; Q9967; J0330; J2001; J2405; J2704; J3010; J3490

== ENCOUNTER 2020-08-22 11:25 | Inpatient (IN) | payer MEDICARE ==
[2020-08-22] VITALS (20 sets, daily range): BP systolic 118–151; BP diastolic 52–76
[~2020-08-22 11:25] MED LIST changes: -EPHEDRINE SULFATE 50 MG/ML AMPULE ONE; -FENTANYL CITRATE PF 50 MCG/1 ML 2ML VIAL ONE; -FLUT16H NASAL; -GLYCOPYRROLATE 1 MG/5 ML SYRINGE ONE; -IOHEXOL 350 MG/ML 100ML INFUS..BTL IV ONE; -LIDOCAINE PF 2% 5ML ABBOJECT ONE; -ONDANSETRON HCL 4 MG/2 ML VIAL ONE; -PROPOFOL 10 MG/ML 20ML VIAL IV ONE; -SUCCINYLCHOLINE 200MG/10ML SYR ONE
[2020-08-22 12:09] LABS: BASOPHILS % (AUTO) 0.7 % (0.0-5.0); EOSINOPHILS % (AUTO) 4.8 % (0.0-8.0); HEMATOCRIT 32.5 % (36-48); MEAN CORPUSCULAR HEMOGLOBIN 29.5 pg (27.0-33.0); MEAN CORPUSCULAR HGB CONC 32.6 g/dL (32.0-36.0); MEAN CORPUSCULAR VOLUME 90.5 fL (79-99); MONOCYTES % (AUTO) 7.1 % (3.0-13.0); NEUTROPHILS % (AUTO) 57.9 % (40.0-77.0); PLATELET COUNT (AUTO) 255 K/uL (130-400); RED BLOOD CELL COUNT(AUTO) 3.59 MIL/uL (4.00-5.50); RED CELL DISTRIBUTION WIDTH 14.4 % (11.0-15.5); WHITE BLOOD COUNT (AUTO) 6.1 K/uL (4.8-10.8)
[2020-08-22 12:21] LABS: POTASSIUM 4.4 mmol/L (3.5-5.1)
[2020-08-22 12:22] LABS: INR 1.02 (0.85-1.15); PROTHROMBIN TIME 11.1 SEC (9.6-11.6)
[2020-08-22 12:24] LABS: PARTIAL THROMBOPLASTIN TIME 25.6 SEC (26.3-35.5)
[2020-08-22 12:25] LABS: ALBUMIN 3.8 g/dL (3.5-5.0); BILIRUBIN,TOTAL 0.4 mg/dL (0.2-1.0); TOTAL PROTEIN, SERUM 7.6 g/dL (6.0-8.3)
[2020-08-22] MEDS ORDERED: ZOSYN 3.375GM+NS 50ML 50 ML IV ONE (15:11)
[2020-08-22] MEDS ORDERED: BUPIVACAINE/PF 0.5% 30ML VIAL ONE (15:45)
[2020-08-22] MEDS ORDERED: SODIUM CHLORIDE 0.9% 50 ML IV ONE (15:54)
[2020-08-22] MEDS: LACTATED RINGERS 1000ML 1,000 ML IV SCH ×2 (16:15→18:45)
[2020-08-22] MEDS ORDERED: MEPERIDINE-PF 25 MG/ML SYG ONE (16:21)
[2020-08-22] MEDS ORDERED: LACTATED RINGERS 1000ML 1,000 ML IV ONE (18:05)
[2020-08-22] MEDS: ZOSYN 3.375GM+NS 50ML 50 ML IV SCH (18:45)
[2020-08-22] MEDS ORDERED: KETOROLAC TROMETHAMINE 30MG/ML IV SCH (18:45)
[2020-08-22] MEDS ORDERED: ONDANSETRON HCL 4 MG/2 ML VIAL IVP PRN (18:45)
[2020-08-22] MEDS: HYDROMORPHONE 1 MG/1 ML AMP IVP PRN ×2 (19:51→23:21)
[2020-08-22] MEDS ORDERED: FLUT16H NASAL (20:02)
[2020-08-22] MEDS: KETOROLAC TROMETHAMINE 30MG/ML IV SCH (21:00)
[2020-08-22] MEDS ORDERED: FLUTICASONE PROPIONATE 50MCG/SPRAY 16 GM BOTTLE EN PRN (21:45)
[2020-08-22] MEDS: ALPRAZOLAM 1 MG TAB PO PRN (23:21)
[2020-08-23] VITALS (7 sets, daily range): BP systolic 111–173; BP diastolic 42–81
[2020-08-23] MEDS: ZOSYN 3.375GM+NS 50ML 50 ML IV SCH ×3 (02:37→20:47)
[2020-08-23] MEDS: KETOROLAC TROMETHAMINE 30MG/ML IV SCH ×4 (03:06→20:47)
[2020-08-23] MEDS ORDERED: PHARMACY COMMUNICATION MISC SCH (05:15)
[2020-08-23] MEDS ORDERED: FLUTICASONE PROPIONATE 50MCG/SPRAY 16 GM BOTTLE EN PRN (06:30)
[2020-08-23] MEDS: LACTATED RINGERS 1000ML 1,000 ML IV SCH (08:05)
[2020-08-23] MEDS: HYDROMORPHONE 1 MG/1 ML AMP IVP PRN ×2 (09:31→20:49)
[2020-08-23] MEDS: ALPRAZOLAM 1 MG TAB PO PRN (13:12)
[2020-08-24] MEDS: HYDROMORPHONE 1 MG/1 ML AMP IVP PRN ×5 (02:55→21:46)
[2020-08-24] MEDS: KETOROLAC TROMETHAMINE 30MG/ML IV SCH ×4 (02:55→21:45)
[2020-08-24 04:05] VITALS: BP 159/58
[2020-08-24] MEDS: ZOSYN 3.375GM+NS 50ML 50 ML IV SCH ×3 (04:54→20:49)
[2020-08-24] MEDS ORDERED: ACETAMINOPHEN 325 MG TAB ONE (05:06)
[2020-08-24 08:00] VITALS: BP 148/60
[2020-08-24] MEDS: AMLODIPINE BESYLATE 5 MG TAB PO SCH (11:00)
[2020-08-24 11:53] VITALS: BP 136/51
[2020-08-24 17:31] VITALS: BP 142/56
[2020-08-24 19:00] VITALS: BP 154/42
[2020-08-24] MEDS: MORPHINE SULFATE 2 MG/ML 1ML SYG IVP PRN (20:49)
[2020-08-25] VITALS: BP 146/41
[2020-08-25] MEDS: HYDROMORPHONE 1 MG/1 ML AMP IVP PRN ×5 (03:03→21:02)
[2020-08-25] MEDS: KETOROLAC TROMETHAMINE 30MG/ML IV SCH ×4 (03:03→21:02)
[2020-08-25] MEDS: ZOSYN 3.375GM+NS 50ML 50 ML IV SCH ×3 (03:05→19:47)
[2020-08-25 04:00] VITALS: BP 153/48
[2020-08-25] MEDS: MORPHINE SULFATE 2 MG/ML 1ML SYG IVP PRN ×2 (05:56→19:38)
[2020-08-25 08:00] VITALS: BP 124/58
[2020-08-25] MEDS: METFORMIN HCL 500 MG TABLET PO SCH (08:26)
[2020-08-25] MEDS: LOSARTAN 100 MG TABLET PO SCH (08:27)
[2020-08-25] MEDS: ASPIRIN 81MG TAB.CHEW PO SCH (08:27)
[2020-08-25] MEDS: DOCUSATE SODIUM 100 MG CAP PO SCH (08:27)
[2020-08-25] MEDS: AMLODIPINE BESYLATE 5 MG TAB PO SCH (10:30)
[2020-08-25] MEDS: ALPRAZOLAM 1 MG TAB PO PRN ×2 (11:36→21:02)
[2020-08-25 12:00] VITALS: BP 171/68
[2020-08-25 15:42] VITALS: BP 150/50
[2020-08-25 20:00] VITALS: BP 173/62
[2020-08-26] VITALS (7 sets, daily range): BP systolic 103–176; BP diastolic 44–74
[2020-08-26] MEDS: MORPHINE SULFATE 2 MG/ML 1ML SYG IVP PRN ×3 (02:15→22:02)
[2020-08-26] MEDS: KETOROLAC TROMETHAMINE 30MG/ML IV SCH ×4 (03:03→20:16)
[2020-08-26] MEDS: HYDROMORPHONE 1 MG/1 ML AMP IVP PRN ×5 (03:03→20:16)
[2020-08-26] MEDS: ZOSYN 3.375GM+NS 50ML 50 ML IV SCH ×3 (03:03→20:15)
[2020-08-26] MEDS: DOCUSATE SODIUM 100 MG CAP PO SCH (09:01)
[2020-08-26] MEDS: ASPIRIN 81MG TAB.CHEW PO SCH (09:01)
[2020-08-26] MEDS: METFORMIN HCL 500 MG TABLET PO SCH (09:01)
[2020-08-26] MEDS: LOSARTAN 100 MG TABLET PO SCH (09:02)
[2020-08-26] MEDS: AMLODIPINE BESYLATE 5 MG TAB PO SCH ×2 (09:15→09:17)
[2020-08-26] MEDS: ALPRAZOLAM 1 MG TAB PO PRN ×2 (10:43→20:26)
[2020-08-26] MEDS: LIDOCAINE 5% TOPICAL PATCH TP SCH (15:45)
[2020-08-27] MEDS: ZOSYN 3.375GM+NS 50ML 50 ML IV SCH ×2 (03:22→12:00)
[2020-08-27] MEDS: KETOROLAC TROMETHAMINE 30MG/ML IV SCH ×2 (03:22→09:10)
[2020-08-27 03:25] VITALS: BP 142/72
[2020-08-27 07:29] VITALS: BP 160/53
[2020-08-27] MEDS: LIDOCAINE 5% TOPICAL PATCH TP SCH (09:03)
[2020-08-27] MEDS: LOSARTAN 100 MG TABLET PO SCH (09:10)
[2020-08-27] MEDS: ASPIRIN 81MG TAB.CHEW PO SCH (09:10)
[2020-08-27] MEDS: DOCUSATE SODIUM 100 MG CAP PO SCH (09:10)
[2020-08-27] MEDS: METFORMIN HCL 500 MG TABLET PO SCH (09:10)
[2020-08-27] MEDS: AMLODIPINE BESYLATE 5 MG TAB PO SCH (09:11)
[2020-08-27] MEDS: HYDROMORPHONE 1 MG/1 ML AMP IVP PRN (09:13)
[2020-08-27 11:30] VITALS: BP 152/58
[2020-08-27] MEDS: MORPHINE SULFATE 2 MG/ML 1ML SYG IVP PRN (12:16)
== END 2020-08-27 15:00 | disposition home or self-care (01) | DRG 909 ==
LOC: EDH 11:25 → 4AH 16:11 → OBSVTOIN 16:11 → 3AH 08-24 11:16
PROVIDERS: ADMIT Surgery; ATTEND Surgery
PROC: 0W9F0ZZ Drainage of Abdominal Wall, Open Approach (ICD-10-PCS; principal; 2020-08-22 15:28)
DX: K91.872 Postprocedural seroma of a digestive system organ or structure following a digestive system procedure (principal); E11.9 Type 2 diabetes mellitus without complications; I25.10 Atherosclerotic heart disease of native coronary artery without angina pectoris; I50.9 Heart failure, unspecified; Z88.8 Allergy status to other drugs, medicaments and biological substances; Z88.1 Allergy status to other antibiotic agents; Y83.8 Other surgical procedures as the cause of abnormal reaction of the patient, or of later complication, without mention of misadventure at the time of the procedure; Y82.8 Other medical devices associated with adverse incidents
CPT/HCPCS: 36415; 74160; 80053; 82565; 84520; 85025; 85610; 85730; 87070; 87076; 87205; G0378; J0330; J1170; J1885; J2001; J2175; J2405; J2543; J2704; J3010; J3490; J7030; J7120; Q9967

== ENCOUNTER → 2020-08-31 | Outpatient (CLI) | payer MEDICARE ==
[~2020-08-31] MED LIST changes: +FLUT16H NASAL; +LIDOCAINE HCL 4% LTA SOL 4 ML VIAL TP ONE
== END | disposition home or self-care (01) ==
LOC: WHH 10:27
PROVIDERS: ATTEND Family Medicine
DX: T81.89XA Other complications of procedures, not elsewhere classified, initial encounter (principal); L02.211 Cutaneous abscess of abdominal wall; K91.872 Postprocedural seroma of a digestive system organ or structure following a digestive system procedure; I50.9 Heart failure, unspecified; I25.10 Atherosclerotic heart disease of native coronary artery without angina pectoris; E11.42 Type 2 diabetes mellitus with diabetic polyneuropathy; E66.9 Obesity, unspecified; E66.01 Morbid (severe) obesity due to excess calories; I11.0 Hypertensive heart disease with heart failure; E78.5 Hyperlipidemia, unspecified; F32.9 Major depressive disorder, single episode, unspecified; F41.9 Anxiety disorder, unspecified; Z88.8 Allergy status to other drugs, medicaments and biological substances; Z88.1 Allergy status to other antibiotic agents; Z95.1 Presence of aortocoronary bypass graft; Z90.49 Acquired absence of other specified parts of digestive tract; Z68.36 Body mass index [BMI] 36.0-36.9, adult; Y83.8 Other surgical procedures as the cause of abnormal reaction of the patient, or of later complication, without mention of misadventure at the time of the procedure; Y92.238 Other place in hospital as the place of occurrence of the external cause
CPT/HCPCS: 97605; G0463

== ENCOUNTER → 2020-09-03 | Outpatient (CLI) | payer MEDICARE ==
[~2020-09-03] MED LIST changes: -LIDOCAINE HCL 4% LTA SOL 4 ML VIAL TP ONE
== END | disposition home or self-care (01) ==
LOC: WHH 11:21
PROVIDERS: ATTEND Family Medicine
DX: T81.89XD Other complications of procedures, not elsewhere classified, subsequent encounter (principal); L02.211 Cutaneous abscess of abdominal wall; K91.872 Postprocedural seroma of a digestive system organ or structure following a digestive system procedure; I50.9 Heart failure, unspecified; I25.10 Atherosclerotic heart disease of native coronary artery without angina pectoris; E11.42 Type 2 diabetes mellitus with diabetic polyneuropathy; E66.9 Obesity, unspecified; E66.01 Morbid (severe) obesity due to excess calories; I11.0 Hypertensive heart disease with heart failure; E78.5 Hyperlipidemia, unspecified; F32.9 Major depressive disorder, single episode, unspecified; F41.9 Anxiety disorder, unspecified; Z88.8 Allergy status to other drugs, medicaments and biological substances; Z88.1 Allergy status to other antibiotic agents; Z95.1 Presence of aortocoronary bypass graft; Z90.49 Acquired absence of other specified parts of digestive tract; Z68.36 Body mass index [BMI] 36.0-36.9, adult; Y83.8 Other surgical procedures as the cause of abnormal reaction of the patient, or of later complication, without mention of misadventure at the time of the procedure
CPT/HCPCS: 97605; G0463

== ENCOUNTER → 2020-09-08 | Outpatient (CLI) | payer MEDICARE | END | disposition home or self-care (01) | LOC: WHH 09:59 | PROVIDERS: ATTEND Family Medicine | DX: T81.32XD Disruption of internal operation (surgical) wound, not elsewhere classified, subsequent encounter (principal); K91.872 Postprocedural seroma of a digestive system organ or structure following a digestive system procedure; I50.9 Heart failure, unspecified; I25.10 Atherosclerotic heart disease of native coronary artery without angina pectoris; E11.42 Type 2 diabetes mellitus with diabetic polyneuropathy; E66.01 Morbid (severe) obesity due to excess calories; I11.0 Hypertensive heart disease with heart failure; E78.5 Hyperlipidemia, unspecified; F32.9 Major depressive disorder, single episode, unspecified; Z88.8 Allergy status to other drugs, medicaments and biological substances; Z88.1 Allergy status to other antibiotic agents; Z95.1 Presence of aortocoronary bypass graft; Z90.49 Acquired absence of other specified parts of digestive tract; Z68.36 Body mass index [BMI] 36.0-36.9, adult; Y83.8 Other surgical procedures as the cause of abnormal reaction of the patient, or of later complication, without mention of misadventure at the time of the procedure | CPT/HCPCS: 97605; G0463 ==

== ENCOUNTER → 2020-09-10 | Outpatient (CLI) | payer MEDICARE ==
[~2020-09-10] MED LIST changes: +LIDOCAINE HCL 4% LTA SOL 4 ML VIAL TP ONE
== END | disposition home or self-care (01) ==
LOC: WHH 13:57
PROVIDERS: ATTEND Family Medicine
DX: T81.32XD Disruption of internal operation (surgical) wound, not elsewhere classified, subsequent encounter (principal); K91.872 Postprocedural seroma of a digestive system organ or structure following a digestive system procedure; I50.9 Heart failure, unspecified; I25.10 Atherosclerotic heart disease of native coronary artery without angina pectoris; E11.42 Type 2 diabetes mellitus with diabetic polyneuropathy; E66.01 Morbid (severe) obesity due to excess calories; I11.0 Hypertensive heart disease with heart failure; E78.5 Hyperlipidemia, unspecified; F32.9 Major depressive disorder, single episode, unspecified; Z88.8 Allergy status to other drugs, medicaments and biological substances; Z88.1 Allergy status to other antibiotic agents; Z95.1 Presence of aortocoronary bypass graft; Z90.49 Acquired absence of other specified parts of digestive tract; Z68.36 Body mass index [BMI] 36.0-36.9, adult; Y83.8 Other surgical procedures as the cause of abnormal reaction of the patient, or of later complication, without mention of misadventure at the time of the procedure
CPT/HCPCS: 97605; G0463

== ENCOUNTER → 2020-09-17 | Outpatient (CLI) | payer MEDICARE | END | disposition home or self-care (01) | LOC: WHH 13:47 | PROVIDERS: ATTEND Family Medicine | DX: T81.32XD Disruption of internal operation (surgical) wound, not elsewhere classified, subsequent encounter (principal); K91.872 Postprocedural seroma of a digestive system organ or structure following a digestive system procedure; I50.9 Heart failure, unspecified; I25.10 Atherosclerotic heart disease of native coronary artery without angina pectoris; E11.42 Type 2 diabetes mellitus with diabetic polyneuropathy; E66.01 Morbid (severe) obesity due to excess calories; I11.0 Hypertensive heart disease with heart failure; E78.5 Hyperlipidemia, unspecified; F32.9 Major depressive disorder, single episode, unspecified; Z88.8 Allergy status to other drugs, medicaments and biological substances; Z88.1 Allergy status to other antibiotic agents; Z95.1 Presence of aortocoronary bypass graft; Z90.49 Acquired absence of other specified parts of digestive tract; Z68.36 Body mass index [BMI] 36.0-36.9, adult; Y83.8 Other surgical procedures as the cause of abnormal reaction of the patient, or of later complication, without mention of misadventure at the time of the procedure | CPT/HCPCS: 97605; G0463 ==

== ENCOUNTER 2020-09-18 00:40 | Emergency (ER) | payer MEDICARE ==
[~2020-09-18] VITALS: Ht 160 cm; Wt 81.6 kg
[~2020-09-18 00:40] MED LIST changes: -LIDOCAINE HCL 4% LTA SOL 4 ML VIAL TP ONE
[2020-09-18 02:45] VITALS: BP 124/62
== END 2020-09-18 03:23 | disposition home or self-care (01) ==
LOC: EDH 00:40
DX: Z48.01 Encounter for change or removal of surgical wound dressing (principal); I10 Essential (primary) hypertension; E11.9 Type 2 diabetes mellitus without complications; E78.5 Hyperlipidemia, unspecified; Z79.82 Long term (current) use of aspirin; Z79.84 Long term (current) use of oral hypoglycemic drugs; Z79.899 Other long term (current) drug therapy
CPT/HCPCS: 99281

== ENCOUNTER → 2020-09-21 | Outpatient (CLI) | payer MEDICARE | END | disposition home or self-care (01) | LOC: WHH 13:30 | PROVIDERS: ATTEND Family Medicine | DX: T81.32XD Disruption of internal operation (surgical) wound, not elsewhere classified, subsequent encounter (principal); K91.872 Postprocedural seroma of a digestive system organ or structure following a digestive system procedure; I50.9 Heart failure, unspecified; I25.10 Atherosclerotic heart disease of native coronary artery without angina pectoris; E11.42 Type 2 diabetes mellitus with diabetic polyneuropathy; E66.01 Morbid (severe) obesity due to excess calories; I11.0 Hypertensive heart disease with heart failure; E78.5 Hyperlipidemia, unspecified; F32.9 Major depressive disorder, single episode, unspecified; Z88.8 Allergy status to other drugs, medicaments and biological substances; Z88.1 Allergy status to other antibiotic agents; Z95.1 Presence of aortocoronary bypass graft; Z90.49 Acquired absence of other specified parts of digestive tract; Z68.36 Body mass index [BMI] 36.0-36.9, adult; Y83.8 Other surgical procedures as the cause of abnormal reaction of the patient, or of later complication, without mention of misadventure at the time of the procedure | CPT/HCPCS: 97605; G0463 ==

== ENCOUNTER → 2020-09-28 | Outpatient (CLI) | payer MEDICARE | END | disposition home or self-care (01) | LOC: RAH 11:21 | PROVIDERS: ATTEND Internal Medicine Cardiovascular Disease | DX: I82.401 Acute embolism and thrombosis of unspecified deep veins of right lower extremity (principal); I82.402 Acute embolism and thrombosis of unspecified deep veins of left lower extremity; M79.661 Pain in right lower leg | CPT/HCPCS: 93971 ==

== ENCOUNTER → 2020-09-28 | Outpatient (CLI) | payer MEDICARE ==
[~2020-09-28] MED LIST changes: +IBUP-2076 PO
== END | disposition home or self-care (01) ==
LOC: WHH 13:19
PROVIDERS: ATTEND Family Medicine
DX: T81.32XD Disruption of internal operation (surgical) wound, not elsewhere classified, subsequent encounter (principal); K91.872 Postprocedural seroma of a digestive system organ or structure following a digestive system procedure; I50.9 Heart failure, unspecified; M79.661 Pain in right lower leg; I25.10 Atherosclerotic heart disease of native coronary artery without angina pectoris; E11.42 Type 2 diabetes mellitus with diabetic polyneuropathy; E66.01 Morbid (severe) obesity due to excess calories; I11.0 Hypertensive heart disease with heart failure; E78.5 Hyperlipidemia, unspecified; F32.9 Major depressive disorder, single episode, unspecified; Z88.8 Allergy status to other drugs, medicaments and biological substances; Z95.1 Presence of aortocoronary bypass graft; Z90.49 Acquired absence of other specified parts of digestive tract; Z68.36 Body mass index [BMI] 36.0-36.9, adult; Y83.8 Other surgical procedures as the cause of abnormal reaction of the patient, or of later complication, without mention of misadventure at the time of the procedure
CPT/HCPCS: 93971; 97605; G0463

== ENCOUNTER → 2020-10-01 | Outpatient (CLI) | payer MEDICARE ==
[~2020-10-01] MED LIST changes: -IBUP-2076 PO; +LIDOCAINE HCL 4% LTA SOL 4 ML VIAL TP ONE
== END | disposition home or self-care (01) ==
LOC: WHH 13:58
PROVIDERS: ATTEND Family Medicine
DX: T81.32XD Disruption of internal operation (surgical) wound, not elsewhere classified, subsequent encounter (principal); K91.872 Postprocedural seroma of a digestive system organ or structure following a digestive system procedure; I50.9 Heart failure, unspecified; I25.10 Atherosclerotic heart disease of native coronary artery without angina pectoris; E11.42 Type 2 diabetes mellitus with diabetic polyneuropathy; E66.01 Morbid (severe) obesity due to excess calories; I11.0 Hypertensive heart disease with heart failure; E78.5 Hyperlipidemia, unspecified; F32.9 Major depressive disorder, single episode, unspecified; Z88.8 Allergy status to other drugs, medicaments and biological substances; Z95.1 Presence of aortocoronary bypass graft; Z90.49 Acquired absence of other specified parts of digestive tract; Z68.36 Body mass index [BMI] 36.0-36.9, adult; Y83.8 Other surgical procedures as the cause of abnormal reaction of the patient, or of later complication, without mention of misadventure at the time of the procedure
CPT/HCPCS: A4450; G0463

== ENCOUNTER → 2020-10-08 | Outpatient (CLI) | payer MEDICARE | END | disposition home or self-care (01) | LOC: WHH 11:36 | PROVIDERS: ATTEND Family Medicine | DX: T81.32XD Disruption of internal operation (surgical) wound, not elsewhere classified, subsequent encounter (principal); K91.872 Postprocedural seroma of a digestive system organ or structure following a digestive system procedure; I50.9 Heart failure, unspecified; I25.10 Atherosclerotic heart disease of native coronary artery without angina pectoris; E11.42 Type 2 diabetes mellitus with diabetic polyneuropathy; E66.01 Morbid (severe) obesity due to excess calories; I11.0 Hypertensive heart disease with heart failure; E78.5 Hyperlipidemia, unspecified; F32.9 Major depressive disorder, single episode, unspecified; Z88.8 Allergy status to other drugs, medicaments and biological substances; Z95.1 Presence of aortocoronary bypass graft; Z90.49 Acquired absence of other specified parts of digestive tract; Z68.36 Body mass index [BMI] 36.0-36.9, adult; Y83.8 Other surgical procedures as the cause of abnormal reaction of the patient, or of later complication, without mention of misadventure at the time of the procedure | CPT/HCPCS: A4450; G0463 ==

== ENCOUNTER → 2020-10-15 | Outpatient (CLI) | payer MEDICARE ==
[~2020-10-15] MED LIST changes: +IBUP-2076 PO
== END | disposition home or self-care (01) ==
LOC: WHH 11:17
PROVIDERS: ATTEND Family Medicine
DX: T81.32XD Disruption of internal operation (surgical) wound, not elsewhere classified, subsequent encounter (principal); K91.872 Postprocedural seroma of a digestive system organ or structure following a digestive system procedure; I11.0 Hypertensive heart disease with heart failure; I50.9 Heart failure, unspecified; I25.10 Atherosclerotic heart disease of native coronary artery without angina pectoris; E11.42 Type 2 diabetes mellitus with diabetic polyneuropathy; E66.01 Morbid (severe) obesity due to excess calories; E78.5 Hyperlipidemia, unspecified; F32.9 Major depressive disorder, single episode, unspecified; Z88.8 Allergy status to other drugs, medicaments and biological substances; Z95.1 Presence of aortocoronary bypass graft; Z90.49 Acquired absence of other specified parts of digestive tract; Z68.36 Body mass index [BMI] 36.0-36.9, adult; Y83.8 Other surgical procedures as the cause of abnormal reaction of the patient, or of later complication, without mention of misadventure at the time of the procedure
CPT/HCPCS: G0463

== ENCOUNTER 2020-10-18 09:54 | Emergency (ER) | payer MEDICARE ==
[~2020-10-18] VITALS: Ht 160 cm; Wt 85.7 kg
[~2020-10-18 09:54] MED LIST changes: -IBUP-2076 PO; -LIDOCAINE HCL 4% LTA SOL 4 ML VIAL TP ONE
[2020-10-18 09:56] VITALS: BP 153/57
[2020-10-18] MEDS ORDERED: KETOROLAC 30MG VIAL (30MG/ML) IM SCH (11:00)
[2020-10-18] MEDS ORDERED: KETOROLAC 30MG VIAL (30MG/ML) ONE (11:00)
[2020-10-18 11:10] VITALS: BP 122/66
[2020-10-18 11:30] VITALS: BP 146/58
[2020-10-18] MEDS ORDERED: IBUP-2076 PO (11:50)
[2020-10-18 12:12] VITALS: BP 118/70
== END 2020-10-18 12:14 | disposition home or self-care (01) ==
LOC: EDH 09:54
DX: S52.591A Other fractures of lower end of right radius, initial encounter for closed fracture (principal); E11.9 Type 2 diabetes mellitus without complications; E78.00 Pure hypercholesterolemia, unspecified; I10 Essential (primary) hypertension; Z88.8 Allergy status to other drugs, medicaments and biological substances; Z79.1 Long term (current) use of non-steroidal anti-inflammatories (NSAID); Z79.82 Long term (current) use of aspirin; Z79.84 Long term (current) use of oral hypoglycemic drugs; Z79.899 Other long term (current) drug therapy; Z90.49 Acquired absence of other specified parts of digestive tract; W06.XXXA Fall from bed, initial encounter; Y93.89 Activity, other specified; Y92.89 Other specified places as the place of occurrence of the external cause; Y99.8 Other external cause status
CPT/HCPCS: 73110; 73130; 96372; 99284; J1885

== ENCOUNTER → 2020-10-22 | Outpatient (CLI) | payer MEDICARE ==
[~2020-10-22] MED LIST changes: +IBUP-2076 PO; +LIDOCAINE HCL 4% LTA SOL 4 ML VIAL TP ONE
== END | disposition home or self-care (01) ==
LOC: WHH 11:03
PROVIDERS: ATTEND Family Medicine
DX: T81.31XD Disruption of external operation (surgical) wound, not elsewhere classified, subsequent encounter (principal); K91.872 Postprocedural seroma of a digestive system organ or structure following a digestive system procedure; I11.0 Hypertensive heart disease with heart failure; I50.9 Heart failure, unspecified; I25.10 Atherosclerotic heart disease of native coronary artery without angina pectoris; E11.42 Type 2 diabetes mellitus with diabetic polyneuropathy; E66.01 Morbid (severe) obesity due to excess calories; E78.5 Hyperlipidemia, unspecified; F32.9 Major depressive disorder, single episode, unspecified; Z88.8 Allergy status to other drugs, medicaments and biological substances; Z95.1 Presence of aortocoronary bypass graft; Z90.49 Acquired absence of other specified parts of digestive tract; Z68.36 Body mass index [BMI] 36.0-36.9, adult; Y83.8 Other surgical procedures as the cause of abnormal reaction of the patient, or of later complication, without mention of misadventure at the time of the procedure
CPT/HCPCS: G0463

== ENCOUNTER 2020-12-10 17:52 | Emergency (ER) | payer MEDICARE ==
[~2020-12-10] VITALS: Ht 127 cm; Wt 81.6 kg
[~2020-12-10 17:52] MED LIST changes: -LIDOCAINE HCL 4% LTA SOL 4 ML VIAL TP ONE
[2020-12-10 18:44] LABS: BASOPHILS % (AUTO) 0.7 % (0.0-5.0); EOSINOPHILS % (AUTO) 0.3 % (0.0-8.0); HEMATOCRIT 33.5 % (36-48); LYMPHOCYTES % (AUTO) 38.1 % (21.0-51.0); MEAN CORPUSCULAR HEMOGLOBIN 30.1 pg (27.0-33.0); MEAN CORPUSCULAR VOLUME 88.4 fL (79-99); MONOCYTES % (AUTO) 6.9 % (3.0-13.0); NEUTROPHILS % (AUTO) 53.7 % (40.0-77.0); PLATELET COUNT (AUTO) 252 K/uL (130-400); RED BLOOD CELL COUNT(AUTO) 3.79 MIL/uL (4.00-5.50); RED CELL DISTRIBUTION WIDTH 13.2 % (11.0-15.5); WHITE BLOOD COUNT (AUTO) 9.1 K/uL (4.8-10.8)
[2020-12-10 18:56] LABS: CREATININE 1.1 mg/dL (0.5-1.5); POTASSIUM 4.9 mmol/L (3.5-5.1)
[2020-12-10 18:58] LABS: INR 1.08 (0.85-1.15); PROTHROMBIN TIME 11.7 SEC (9.6-11.6)
[2020-12-10 18:59] LABS: PARTIAL THROMBOPLASTIN TIME 26.2 SEC (26.3-35.5)
[2020-12-10 19:00] LABS: BILIRUBIN,TOTAL 0.5 mg/dL (0.2-1.0); TOTAL PROTEIN, SERUM 7.4 g/dL (6.0-8.3)
[2020-12-10] MEDS ORDERED: ASPIRIN 325MG TAB PO ONE (19:00)
[2020-12-10] MEDS ORDERED: NITROGLYCERIN 1GM OINT 1 INCH/1GM TD ONE (19:00)
[2020-12-10] MEDS ORDERED: NITROGLYCERIN 0.4 MG SL TAB SL PRN (19:00)
[2020-12-10 19:20] LABS: B-TYPE NATRIURETIC PEPTIDE 84 pg/mL (0-100)
[2020-12-10 19:50] VITALS: BP 158/53
[2020-12-10] MEDS ORDERED: MAG/ALUM/SIMETH 30 ML UDCUP PO ONE (20:00)
[2020-12-10] MEDS ORDERED: LIDOCAINE HCL 2% VISCOUS 15 ML UDCUP PO ONE (20:00)
[2020-12-10] MEDS ORDERED: FAMOTIDINE 20MG TAB PO ONE (20:00)
[2020-12-10] MEDS ORDERED: FAMO-136 PO (20:29)
[2020-12-10 20:45] VITALS: BP 142/63
== END 2020-12-10 21:00 | disposition home or self-care (01) ==
LOC: EDH 17:52
DX: K21.9 Gastro-esophageal reflux disease without esophagitis (principal); R07.89 Other chest pain; F32.9 Major depressive disorder, single episode, unspecified; E11.9 Type 2 diabetes mellitus without complications; E78.00 Pure hypercholesterolemia, unspecified; I10 Essential (primary) hypertension; Z90.49 Acquired absence of other specified parts of digestive tract; Z79.899 Other long term (current) drug therapy; Z88.8 Allergy status to other drugs, medicaments and biological substances
CPT/HCPCS: 36415; 71045; 80053; 82550; 83880; 84484; 85025; 85610; 85730; 93005

== ENCOUNTER → 2021-04-20 | Outpatient (CLI) | payer OTHER, MEDICARE ==
[~2021-04-20] VITALS: Ht 160 cm; Wt 87.1 kg
[~2021-04-20] MED LIST changes: +FAMO-136 PO; +REGADENOSON 0.4 MG/5 ML PF SYG IVP SCH
== END | disposition home or self-care (01) ==
LOC: SHCH 08:36
PROVIDERS: ATTEND Internal Medicine Cardiovascular Disease
DX: I25.709 Atherosclerosis of coronary artery bypass graft(s), unspecified, with unspecified angina pectoris (principal)
CPT/HCPCS: 78452; 93017; 96374; A9500 ×2; J2785

== ENCOUNTER 2021-06-08 13:39 | Inpatient (IN) | payer OTHER, MEDICARE ==
[~2021-06-08] VITALS: Ht 160 cm; Wt 87.3 kg
[~2021-06-08 13:39] MED LIST changes: -REGADENOSON 0.4 MG/5 ML PF SYG IVP SCH
[2021-06-08 14:20] LABS: BASOPHILS % (AUTO) 0.5 % (0.0-5.0); EOSINOPHILS % (AUTO) 2.2 % (0.0-8.0); LYMPHOCYTES % (AUTO) 28.6 % (21.0-51.0); MEAN CORPUSCULAR HEMOGLOBIN 30.4 pg (27.0-33.0); MEAN CORPUSCULAR HGB CONC 32.9 g/dL (32.0-36.0); MEAN CORPUSCULAR VOLUME 92.3 fL (79-99); MONOCYTES % (AUTO) 7.1 % (3.0-13.0); NEUTROPHILS % (AUTO) 61.1 % (40.0-77.0); PLATELET COUNT (AUTO) 219 K/uL (130-400); RED BLOOD CELL COUNT(AUTO) 3.36 MIL/uL (4.00-5.50); RED CELL DISTRIBUTION WIDTH 12.3 % (11.0-15.5)
[2021-06-08 14:36] LABS: POTASSIUM 4.3 mmol/L (3.5-5.1)
[2021-06-08 14:45] LABS: ALBUMIN 3.5 g/dL (3.5-5.0); BILIRUBIN,TOTAL 0.5 mg/dL (0.2-1.0); TOTAL PROTEIN, SERUM 6.7 g/dL (6.0-8.3)
[2021-06-08] MEDS ORDERED: MORPHINE 2 MG SYG IVP ONE ×2 (15:30→20:30)
[2021-06-08] MEDS ORDERED: ONDANSETRON 4MG INJ IVP ONE (15:30)
[2021-06-08] MEDS ORDERED: ASPIRIN 81MG CHEW TAB PO ONE (15:30)
[2021-06-08] MEDS ORDERED: NITROGLYCERIN 0.4 MG SL TAB SL PRN (16:00)
[2021-06-08 16:26] LABS: HEMOGLOBIN A1C 7.8 % (4.0-6.0)
[2021-06-08] MEDS ORDERED: AMLODIPINE 5 MG TAB PO SCH (19:00)
[2021-06-08 19:10] VITALS: BP 143/48
[2021-06-08] MEDS ORDERED: ALPRAZOLAM 1 MG TAB PO ONE (20:30)
[2021-06-08] MEDS ORDERED: ATORVASTATIN 20 MG TABLET PO SCH (21:00)
[2021-06-08] MEDS ORDERED: FLUTICASONE PROPIONATE 50MCG/SPRAY 16 GM BOTTLE EN SCH (21:00)
[2021-06-08] MEDS ORDERED: ATOR10 PO (22:42)
[2021-06-08] MEDS ORDERED: DOXA2TAB2 PO (22:42)
[2021-06-08] MEDS ORDERED: ISOS30TA92 PO (22:42)
[2021-06-08] MEDS ORDERED: NITR0.4T50 SL (22:42)
[2021-06-08 23:03] VITALS: BP 163/60
[2021-06-08] MEDS ORDERED: ALPRAZOLAM 1 MG TAB ONE (23:44)
[2021-06-09] VITALS (10 sets, daily range): BP systolic 126–150; BP diastolic 42–57
[2021-06-09 02:10] LABS: BASOPHILS % (AUTO) 0.9 % (0.0-5.0); EOSINOPHILS % (AUTO) 3.9 % (0.0-8.0); HEMATOCRIT 29.5 % (36-48); LYMPHOCYTES % (AUTO) 39.9 % (21.0-51.0); MEAN CORPUSCULAR HEMOGLOBIN 30.9 pg (27.0-33.0); MEAN CORPUSCULAR HGB CONC 32.9 g/dL (32.0-36.0); MEAN CORPUSCULAR VOLUME 93.9 fL (79-99); MONOCYTES % (AUTO) 10.1 % (3.0-13.0); NEUTROPHILS % (AUTO) 44.8 % (40.0-77.0); PLATELET COUNT (AUTO) 230 K/uL (130-400); RED BLOOD CELL COUNT(AUTO) 3.14 MIL/uL (4.00-5.50); RED CELL DISTRIBUTION WIDTH 12.4 % (11.0-15.5); WHITE BLOOD COUNT (AUTO) 5.4 K/uL (4.8-10.8)
[2021-06-09 02:28] LABS: CREATININE 0.9 mg/dL (0.5-1.5); MAGNESIUM 1.6 mg/dL (1.80-2.40); POTASSIUM 4.5 mmol/L (3.5-5.1)
[2021-06-09 07:55] LABS: INR 1.05 (0.85-1.15); PROTHROMBIN TIME 11.4 SEC (9.6-11.6)
[2021-06-09 07:56] LABS: PARTIAL THROMBOPLASTIN TIME 26.7 SEC (26.3-35.5)
[2021-06-09] MEDS ORDERED: AMLODIPINE 5 MG TAB PO SCH (09:00)
[2021-06-09] MEDS ORDERED: ISOSORBIDE MONO 30MG SR TAB PO SCH (09:00)
[2021-06-09] MEDS ORDERED: NITROGLYCERIN 50MG VIAL ONE (09:18)
[2021-06-09] MEDS ORDERED: BIVALIRUDIN 250 MG/VIAL IV ONE (09:36)
[2021-06-09] MEDS ORDERED: MIDAZOLAM HCL 1 MG/ML 2ML VIAL ONE ×2 (09:42→10:23)
[2021-06-09] MEDS ORDERED: FENTANYL CITRATE PF 50 MCG/1 ML 2ML VIAL ONE ×2 (10:07→11:03)
[2021-06-09] MEDS ORDERED: LIDOCAINE HCL 400MG/20ML VIAL ONE (10:23)
[2021-06-09] MEDS ORDERED: IOHEXOL-350 50ML VIAL IV ONE (10:25)
[2021-06-09] MEDS ORDERED: IOHEXOL 350 MG/ML 100ML INFUS..BTL IV ONE (10:28)
[2021-06-09] MEDS ORDERED: 0.9%NACL 1000ML 1,000 ML IV SCH (10:30)
[2021-06-09] MEDS ORDERED: ACETAMINOPHEN 325 MG TAB ONE (14:41)
[2021-06-09] MEDS ORDERED: TRAMADOL HCL 50 MG TABLET PO ONE (16:00)
[2021-06-09] MEDS ORDERED: KETOROLAC 15MG/ML VIAL (15MG/ML) ONE (17:11)
[2021-06-09] MEDS ORDERED: KETOROLAC 15MG/ML VIAL (15MG/ML) IM STA (17:27)
== END 2021-06-09 18:30 | disposition home or self-care (01) | DRG 287 ==
LOC: EDH 13:39 → EDHIP 15:37 → 2DH 17:41
PROVIDERS: ADMIT Internal Medicine; ATTEND Internal Medicine
PROC: 4A023N7 Measurement of Cardiac Sampling and Pressure, Left Heart, Percutaneous Approach (ICD-10-PCS; principal; 2021-06-09)
PROC: B2111ZZ Fluoroscopy of Multiple Coronary Arteries using Low Osmolar Contrast (ICD-10-PCS; 2021-06-09)
PROC: B2151ZZ Fluoroscopy of Left Heart using Low Osmolar Contrast (ICD-10-PCS; 2021-06-09)
PROC: B2181ZZ Fluoroscopy of Left Internal Mammary Bypass Graft using Low Osmolar Contrast (ICD-10-PCS; 2021-06-09)
PROC: B3121ZZ Fluoroscopy of Left Subclavian Artery using Low Osmolar Contrast (ICD-10-PCS; 2021-06-09)
DX: I24.9 Acute ischemic heart disease, unspecified (principal); I25.110 Atherosclerotic heart disease of native coronary artery with unstable angina pectoris; E11.9 Type 2 diabetes mellitus without complications; I10 Essential (primary) hypertension; E78.5 Hyperlipidemia, unspecified; G89.29 Other chronic pain; F41.9 Anxiety disorder, unspecified; D64.9 Anemia, unspecified; E78.00 Pure hypercholesterolemia, unspecified; R77.8 Other specified abnormalities of plasma proteins; Z95.1 Presence of aortocoronary bypass graft; Z88.8 Allergy status to other drugs, medicaments and biological substances; Z90.49 Acquired absence of other specified parts of digestive tract; Z82.0 Family history of epilepsy and other diseases of the nervous system; Z82.5 Family history of asthma and other chronic lower respiratory diseases; Z83.3 Family history of diabetes mellitus; Z82.3 Family history of stroke; Z82.49 Family history of ischemic heart disease and other diseases of the circulatory system
CPT/HCPCS: 36415; 70450; 71045; 74176; 80048; 80053; 82728; 82948; 83036; 83540; 83550; 83735; 84484; 85018; 85025; 85610; 85730; 93005; 93459; 99156; 99157; 99291; C1769; C1894; G0378; J0583; J1644; J1885; J2250; J2405; J3010; J3490; Q9967

== ENCOUNTER → 2021-10-22 | Outpatient (CLI) | payer OTHER, MEDICARE ==
[~2021-10-22] MED LIST changes: +ACET-2079 PO; -ACET1TAB25 PO; +ATOR10 PO; +DOXA2TAB2 PO; +ISOS30TA92 PO; +NITR0.4T50 SL
[2021-10-22 12:36] LABS: CREATININE 1.1 mg/dL (0.5-1.5); POTASSIUM 4.3 mmol/L (3.5-5.1)
== END | disposition home or self-care (01) ==
LOC: LAB 11:04
PROVIDERS: ATTEND Internal Medicine Cardiovascular Disease
DX: E87.6 Hypokalemia (principal)
CPT/HCPCS: 36415; 80048

== ENCOUNTER 2021-11-13 16:36 | Emergency (ER) | payer OTHER, MEDICARE ==
[~2021-11-13] VITALS: Ht 157.5 cm; Wt 98.9 kg
[2021-11-13] MEDS: LACTATED RINGERS 1000ML 1,000 ML IV ONE (17:09)
[2021-11-13 17:20] LABS: BASOPHILS % (AUTO) 0.4 % (0.0-5.0); EOSINOPHILS % (AUTO) 0.7 % (0.0-8.0); HEMATOCRIT 31.9 % (36-48); LYMPHOCYTES % (AUTO) 16.5 % (21.0-51.0); MEAN CORPUSCULAR HEMOGLOBIN 31.5 pg (27.0-33.0); MEAN CORPUSCULAR HGB CONC 34.8 g/dL (32.0-36.0); MEAN CORPUSCULAR VOLUME 90.6 fL (79-99); MONOCYTES % (AUTO) 7.8 % (3.0-13.0); NEUTROPHILS % (AUTO) 74.2 % (40.0-77.0); PLATELET COUNT (AUTO) 211 K/uL (130-400); RED BLOOD CELL COUNT(AUTO) 3.52 MIL/uL (4.00-5.50); RED CELL DISTRIBUTION WIDTH 12.8 % (11.0-15.5); WHITE BLOOD COUNT (AUTO) 12.9 K/uL (4.8-10.8)
[2021-11-13 17:29] LABS: POTASSIUM 5.3 mmol/L (3.5-5.1)
[2021-11-13 17:42] LABS: ALBUMIN 3.7 g/dL (3.5-5.0); TOTAL PROTEIN, SERUM 6.9 g/dL (6.0-8.3)
[2021-11-13] MEDS ORDERED: ONDANSETRON 4MG INJ IV ONE (18:00)
[2021-11-13] MEDS: HYDROMORPHONE 1 MG INJ IVP ONE (18:09)
[2021-11-13] MEDS ORDERED: CIPR-278 PO (18:28)
[2021-11-13] MEDS ORDERED: LOPE2CAP PO (18:28)
[2021-11-13 19:03] VITALS: BP 132/56
[2021-11-13] MEDS ORDERED: OXYC-38 PO (19:11)
== END 2021-11-13 19:04 | disposition home or self-care (01) ==
LOC: EDH 16:36
DX: S29.012A Strain of muscle and tendon of back wall of thorax, initial encounter (principal); N28.9 Disorder of kidney and ureter, unspecified; R55 Syncope and collapse; R19.7 Diarrhea, unspecified; M54.2 Cervicalgia; E11.9 Type 2 diabetes mellitus without complications; E78.00 Pure hypercholesterolemia, unspecified; F41.9 Anxiety disorder, unspecified; I10 Essential (primary) hypertension; Z79.1 Long term (current) use of non-steroidal anti-inflammatories (NSAID); Z79.82 Long term (current) use of aspirin; Z79.84 Long term (current) use of oral hypoglycemic drugs; Z79.899 Other long term (current) drug therapy; Z88.8 Allergy status to other drugs, medicaments and biological substances; Z95.1 Presence of aortocoronary bypass graft; W18.39XA Other fall on same level, initial encounter; Y93.89 Activity, other specified; Y92.89 Other specified places as the place of occurrence of the external cause; Y99.8 Other external cause status
CPT/HCPCS: 99285; 70450; 96374; 71045; 96361; 84484; 80053; 85025; 36415; 72125; 74176; 93005; J7120; J1170

== ENCOUNTER → 2023-04-25 | Outpatient (CLI) | payer OTHER, MEDICARE ==
[~2023-04-25] MED LIST changes: -ACET-2079 PO; -DOCU-116 PO; -DOXA2TAB2 PO; -FAMO-136 PO; +GABA600T10 PO; -IBUP-2076 PO; -ISOS30TA92 PO
[2023-04-25 16:40] LABS: CREATININE 1.2 mg/dL (0.5-1.5); POTASSIUM 5.2 mmol/L (3.5-5.1)
== END | disposition home or self-care (01) ==
LOC: LAB 12:40
PROVIDERS: ATTEND Internal Medicine Cardiovascular Disease
DX: I10 Essential (primary) hypertension (principal)
CPT/HCPCS: 36415; 80048

== ENCOUNTER 2023-05-29 21:16 | Emergency (ER) | payer OTHER, MEDICARE ==
[~2023-05-29] VITALS: Ht 157.5 cm; Wt 83.0 kg
[2023-05-29 21:56] LABS: BASOPHILS # (AUTO) 0.04 K/uL (0.00-0.20); BASOPHILS % (AUTO) 0.5 % (0.0-5.0); EOSINOPHILS # (AUTO) 0.01 K/uL (0.00-0.70); EOSINOPHILS % (AUTO) 0.1 % (0.0-8.0); HEMATOCRIT 34.6 % (36-48); IMMATURE GRANULOCYTE ABSOLUTE 0.04 K/uL (0-1); LYMPHOCYTES # (AUTO) 1.4 K/uL (1.0-4.8); LYMPHOCYTES % (AUTO) 16.4 % (21.0-51.0); MEAN CORPUSCULAR HEMOGLOBIN 31.3 pg (27.0-33.0); MEAN CORPUSCULAR HGB CONC 34.7 g/dL (32.0-36.0); MEAN CORPUSCULAR VOLUME 90.3 fL (79-99); MONOCYTES # (AUTO) 0.1 K/uL (0.1-1.0); NEUTROPHILS # (AUTO) 6.8 K/uL (1.8-7.7); NEUTROPHILS % (AUTO) 81.5 % (40.0-77.0); PLATELET COUNT (AUTO) 217 K/uL (130-400); RED BLOOD CELL COUNT(AUTO) 3.83 MIL/uL (4.00-5.50); RED CELL DISTRIBUTION WIDTH 13.2 % (11.0-15.5); WHITE BLOOD COUNT (AUTO) 8.3 K/uL (4.8-10.8)
[2023-05-29 22:08] LABS: CREATININE 1.2 mg/dL (0.5-1.5); POTASSIUM 4.8 mmol/L (3.5-5.1)
[2023-05-29 22:12] LABS: ALBUMIN 4.2 g/dL (3.5-5.0); BILIRUBIN,TOTAL 0.6 mg/dL (0.2-1.0); MAGNESIUM 1.8 mg/dL (1.80-2.40); TOTAL PROTEIN, SERUM 7.8 g/dL (6.0-8.3)
[2023-05-29 22:15] LABS: B-TYPE NATRIURETIC PEPTIDE 126 pg/mL (0-100)
[2023-05-29] MEDS: CLONIDINE HCL 0.1 MG TABLET PO ONE (22:44)
[2023-05-30] MEDS ORDERED: CLON0.1T PO (00:01)
[2023-05-30 00:20] LABS: APPEARANCE,URINE CLEAR (CLEAR); BILIRUBIN,URINE NEGATIVE (NEGATIVE); COLOR,URINE LIGHT-YELLOW (YELLOW); GLUCOSE, URINE (UA) NEGATIVE (NEGATIVE); KETONES,URINE NEGATIVE (NEGATIVE); LEUKOCYTE ESTERASE ,URINE 500 Leu/uL (NEGATIVE); NITRATE,URINE NEGATIVE (NEGATIVE); OCCULT BLOOD,URINE NEGATIVE (NEGATIVE); PROTEIN,URINE 30 mg/dL (NEGATIVE); UROBILINOGEN,URINE 0.2 mg/dL (0.2-1.0)
[2023-05-30 00:24] LABS: ADD UA MICROSCOPIC YES
[2023-05-30 00:27] LABS: BACTERIA,URINE RARE /HPF (None Seen); MUCUS,URINE RARE LPF (None Seen); RBC,URINE 0-1 /HPF (0-1); SQUAMOUS EPITHELIAL CELL,UR RARE /HPF (0-2)
[2023-05-30] MEDS ORDERED: MACR100 PO (00:53)
[2023-05-30 00:55] VITALS: BP 152/59; PULSE 46; RESP 17; O2SAT 97
== END 2023-05-30 00:58 | disposition home or self-care (01) ==
LOC: EDH 21:16
DX: N39.0 Urinary tract infection, site not specified (principal); I10 Essential (primary) hypertension; E11.9 Type 2 diabetes mellitus without complications; F41.9 Anxiety disorder, unspecified; R55 Syncope and collapse; Z79.82 Long term (current) use of aspirin; Z79.84 Long term (current) use of oral hypoglycemic drugs; Z79.899 Other long term (current) drug therapy; Z98.890 Other specified postprocedural states; Z88.8 Allergy status to other drugs, medicaments and biological substances
CPT/HCPCS: 36415; 71045; 80053; 81001; 82550; 83735; 83880; 84484; 85025; 85378; 87088; 93005; 93880

== ENCOUNTER → 2023-07-11 | Outpatient (CLI) | payer OTHER, MEDICARE ==
[~2023-07-11] MED LIST changes: +CLON0.1T PO; +MACR100 PO
[2023-07-11 16:31] LABS: CREATININE 1.1 mg/dL (0.5-1.0); POTASSIUM 5.4 mmol/L (3.5-5.1)
== END | disposition home or self-care (01) ==
LOC: LAB 15:32
PROVIDERS: ATTEND Internal Medicine Cardiovascular Disease
DX: I10 Essential (primary) hypertension (principal)
CPT/HCPCS: 36415; 80048

== ENCOUNTER → 2023-07-18 | Outpatient (CLI) | payer OTHER, MEDICARE ==
[2023-07-18 16:19] LABS: BASOPHILS # (AUTO) 0.04 K/uL (0.00-0.20); BASOPHILS % (AUTO) 0.5 % (0.0-5.0); EOSINOPHILS # (AUTO) 0.29 K/uL (0.00-0.70); EOSINOPHILS % (AUTO) 3.9 % (0.0-8.0); IMMATURE GRANULOCYTE ABSOLUTE 0.04 K/uL (0-1); LYMPHOCYTES # (AUTO) 2.7 K/uL (1.0-4.8); LYMPHOCYTES % (AUTO) 35.9 % (21.0-51.0); MEAN CORPUSCULAR HEMOGLOBIN 30.8 pg (27.0-33.0); MEAN CORPUSCULAR VOLUME 93.2 fL (79-99); MONOCYTES # (AUTO) 0.6 K/uL (0.1-1.0); MONOCYTES % (AUTO) 8.1 % (3.0-13.0); NEUTROPHILS # (AUTO) 3.8 K/uL (1.8-7.7); NEUTROPHILS % (AUTO) 51.1 % (40.0-77.0); PLATELET COUNT (AUTO) 264 K/uL (130-400); RED BLOOD CELL COUNT(AUTO) 3.54 MIL/uL (4.00-5.50); WHITE BLOOD COUNT (AUTO) 7.4 K/uL (4.8-10.8)
[2023-07-18 16:44] LABS: CREATININE 1.1 mg/dL (0.5-1.0); POTASSIUM 4.9 mmol/L (3.5-5.1)
== END | disposition home or self-care (01) ==
LOC: LAB 15:32
PROVIDERS: ATTEND Internal Medicine Cardiovascular Disease
DX: I10 Essential (primary) hypertension (principal)
CPT/HCPCS: 36415; 80048; 85025

== ENCOUNTER → 2024-05-14 | Outpatient (CLI) | payer OTHER, MEDICARE ==
[~2024-05-14] MED LIST changes: +GABA-1405 PO; -GABA600T10 PO
--- NOTE | 2024-05-14 16:47 | HMCIMG ---
Exam Type: KNEE 3VWS RT Clinical Information: Unspecified injury of right shoulder and upper arm, /Unspe RT LEG INJURY Comparison: None Findings: There are degenerative changes with narrowing of the medial and lateral femorotibial joint space, with subchondral sclerosis. Patellofemoral degenerative changes are seen, with osteophytosis No acute fractures are seen. The soft tissues appear normal. Impression: Degenerative changes.
--- NOTE | 2024-05-14 16:49 | HMCIMG ---
Exam Type: SHOULDER COMP 2+VWS RT Clinical Information: Unspecified injury of right shoulder and upper arm, initial encounter/ Comparison: None FINDINGS: The acromioclavicular joint shows hypertrophy, which may impinge upon the rotator cuff tendon. The glenohumeral joint is preserved. Visualized portions of the humerus, the scapula, and the clavicle as well as the upper ribcage are unremarkable. No pulmonary pathology is noted in the visualized portions of the upper lobe. The soft tissues are preserved. There are no other gross abnormalities. 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
== END | disposition home or self-care (01) ==
LOC: OIH 15:49
PROVIDERS: ATTEND Internal Medicine Cardiovascular Disease
DX: S49.91XA Unspecified injury of right shoulder and upper arm, initial encounter (principal); S89.91XA Unspecified injury of right lower leg, initial encounter; M19.011 Primary osteoarthritis, right shoulder; M17.11 Unilateral primary osteoarthritis, right knee; M25.811 Other specified joint disorders, right shoulder; M25.861 Other specified joint disorders, right knee; X58.XXXA Exposure to other specified factors, initial encounter; Y93.89 Activity, other specified; Y92.89 Other specified places as the place of occurrence of the external cause; Y99.8 Other external cause status
CPT/HCPCS: 73030; 73562

== ENCOUNTER → 2024-07-22 | Outpatient (CLI) | payer OTHER, MEDICARE ==
--- NOTE | 2024-07-22 21:16 | HMCIMG ---
Exam Type: MR SHOULDER RIGHT WO Clinical Information: M75.121 Complete rotator cuff tear or rupture of right shoulder, not specif Comparison: None Technique: The examination is done with sagittal T1 and inversion recovery sequences, axial GRE sequence and coronal inversion recovery, proton density and T2 weighted [id number] sequences. FINDINGS: There is a full thickness tear of the rotator cuff tendon supraspinatus component without retraction. The rest of the rotator cuff tendon structures are preserved. There is severe hypertrophy of the acromioclavicular joint contributing to compression of the rotator cuff tendon. There is a SLAP tear with an associated tear involving the biceps tendon anchor which does not run is normally situated in the bicipital tendon groove. There is a joint effusion. The superior, middle, and inferior glenohumeral ligaments are intact. The osseous structures of the shoulder joint to include the visualized segments of humeral head, neck, and shaft as well as the glenoid bone itself, the acromion, the coracoid, portions of the scapula and the distal portion of the clavicle are otherwise intact. The supraglenoid notch is clear without evidence of space occupying lesions or tumor. The structures of the joint capsule are preserved. The limited examination of the deltoid and the limited visualized portions of the pectoralis major are intact. IMPRESSION: 1. ROTATOR CUFF TENDON TEAR. 2. There is severe hypertrophy of the acromioclavicular joint contributing to compression of the rotator cuff tendon. There is a SLAP tear with an associated tear involving the biceps tendon anchor which does not run is normally situated in the bicipital tendon groove. There is a joint effusion.
== END | disposition home or self-care (01) ==
LOC: RAH 14:48
PROVIDERS: ATTEND Student in an Organized Health Care Education/Training Program
DX: S46.011A Strain of muscle(s) and tendon(s) of the rotator cuff of right shoulder, initial encounter (principal); S43.431A Superior glenoid labrum lesion of right shoulder, initial encounter; M25.411 Effusion, right shoulder; M25.811 Other specified joint disorders, right shoulder; M67.813 Other specified disorders of tendon, right shoulder; M25.511 Pain in right shoulder; X58.XXXA Exposure to other specified factors, initial encounter; Y93.89 Activity, other specified; Y92.89 Other specified places as the place of occurrence of the external cause; Y99.8 Other external cause status
CPT/HCPCS: 73221